=== PATIENT | female | born 1975 | race Hispanic/Latino ===

== ENCOUNTER 2016-02-26 16:33 | Emergency (ER) | payer MEDICARE ==
[~2016-02-26] VITALS: Ht 162.6 cm; Wt 86.2 kg
[~2016-02-26 16:33] MED LIST: HYDR100T27 PO; LABE100T2 PO
--- OUTSIDE RECORDS SUMMARY | 2016-02-26 16:37 | XMS REPORT | Continuity of Care Document ---
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 Role Phone NO, LOCAL PHYSICIAN PCP Unavailable Insurance Providers Payer Name Policy Number Subscriber Name Relationship [employer] [id number] Aliza Snow 16 Self / Same As Patient Advance Directives Directive Response Recorded Date/Time Advance Directives No 11/03/15 9:12am Resuscitation Status Full Code 11/03/15 9:12am Chief Complaint and Reason for Visit Chief Complaint Respiratory Problems Reason for Visit [id number] Volume overload Hyperkalemia, diminished renal excretion Problems Active Problems Medical Problem Onset Date Status End stage renal disease on dialysis Unknown Acute Hyperkalemia, diminished renal excretion Unknown Acute Volume overload Unknown Acute Medications Current Home Medications Medication Dose Units Route Directions Days/Qty Instructions Start Date Hydralazine Hcl 100 Mg 100 Mg Oral Daily 11/03/15 Labetalol Hcl 100 Mg 100 Mg Oral Daily 11/03/15 Social History Social History Problem Response Recorded Date/Time Alcohol Use Denies Use 11/03/2015 9:18am Recreational Drug Use No 11/03/2015 9:18am Recent Foreign Travel No 11/03/2015 8:40am Recent Infectious Disease Exposure No 11/03/2015 8:40am Hospitalization with Isolation Denies 11/03/2015 8:40am Smoking Status Never a Smoker 11/03/2015 9:18am Recent Hopitalizations No 11/03/2015 9:12am Hospitalization with Isolation Denies 11/03/2015 8:40am Query Response Start Date Stop Date Smoking Status Never a Smoker Hospital Discharge Instructions No hospital discharge instructions. Plan of Care Discharge Date 11/03/15 12:40pm Disposition 02 XFER [facility]M HOSP Condition at Discharge Stable Prescriptions See Medication Section Referrals NO,LOCAL PHYSICIAN - Primary Care Physician Functional Status No functional status results. Allergies, Adverse Reactions, Alerts Allergen Type Severity Reaction Status Last Updated Vancomycin Allergy Unknown Active 11/03/15 Immunizations No immunization records. Vital Signs Acute Vital Signs Vital Response Date/Time Temperature (Fahrenheit) 97.5 degrees F (97.6 - 99.5) 11/03/2015 8:40am Temperature (Calculated Celsius) 36.55849 degrees C (36.4 - 37.5) 11/03/2015 8:40am Pulse Rate (adult) 90 bpm (60 - 90) 11/03/2015 8:40am Respiratory Rate 18 bpm (12 - 24) 11/03/2015 8:40am O2 Sat by Pulse Oximetry 96 % (88 - 100) 11/03/2015 8:40am Blood Pressure 206/124 mm Hg 11/03/2015 8:40am Blood Pressure Mean 151 mm Hg 11/03/2015 8:40am Pain Numeric Pain Scale 0-No Pain 11/03/2015 8:40am Height (Feet) 5 feet 11/03/2015 8:40am Height (Inches) 4 inches 11/03/2015 8:40am Height (Calculated Centimeters) 162.829192 cm 11/03/2015 8:40am Weight (Pounds) 192 pounds 11/03/2015 8:40am Weight (Calculated Kilograms) 87.320935 kilograms 11/03/2015 8:40am Capillary Refill Capillary Refill Less Than 3 Seconds 11/03/2015 8:40am Height 5 ft 4 in Weight 192 lb Body Mass Index 33.0 kg/m^2 Results Laboratory Results Test Name Result Units Flags Reference Collection Date/Time Result Date/ Time Comments White Blood Count 7.6 10^3/uL 4.3-11.0 11/03/2015 9:30am 11/03/2015 9: 40am Red Blood Count 2.54 10^6/uL L 4.35-5.85 11/03/2015 9:30am 11/03/2015 9: 40am Hemoglobin 7.4 G/DL L 11.5-16.0 11/03/2015 9:3011/03/2015 9:40am Hematocrit 22 % L 35-52 11/03/2015 9:11/03/2015 9:40am Mean Corpuscular Volume 87 FL 80-99 11/03/2015 9:11/03/2015 9: 40am Mean Corpuscular Hemoglobin 29 PG 25-34 11/03/2015 9:11/03/2015 9: 40am Mean Corpuscular Hemoglobin Concent 33 G/DL 32-36 11/03/2015 9: 9:40am Red Cell Distribution Width 19.3 % H 10.0-14.5 11/03/2015 9:2015 9:40am Platelet Count 145 10^3/uL 130-400 11/03/2015 9:11/03/2015 9:40am Mean Platelet Volume 9.2 FL 7.4-10.4 11/03/2015 9:11/03/2015 9: 40am Neutrophils (%) (Auto) 75 % 42-75 11/03/2015 9:11/03/2015 9:40am Lymphocytes (%) (Auto) 11 % L 12-44 11/03/2015 9:11/03/2015 9:40am Monocytes (%) (Auto) 8 % 0-12 11/03/2015 9:11/03/2015 9:40am Eosinophils (%) (Auto) 5 % 0-10 11/03/2015 9:11/03/2015 9:40am Basophils (%) (Auto) 1 % 0-10 11/03/2015 9:11/03/2015 9:40am Neutrophils # (Auto) 5.7 X 10^3 1.8-7.8 11/03/2015 9:11/03/2015 9: 40am Lymphocytes # (Auto) 0.8 X 10^3 L 1.0-4.0 11/03/2015 9:11/03/2015 9: 40am Monocytes # (Auto) 0.6 X 10^3 0.0-1.0 11/03/2015 9:3011/03/2015 9: 40am Eosinophils # (Auto) 0.4 10^3/uL H 0.0-0.3 11/03/2015 9:30am 11/03/2015 9 :40am Basophils # (Auto) 0.1 10^3/uL 0.0-0.1 11/03/2015 9:30am 11/03/2015 9: 40am Sodium Level 138 MMOL/L 135-145 11/03/2015 9:30am 11/03/2015 10:04am Potassium Level 6.0 MMOL/L H 3.6-5.0 11/03/2015 9:30am 11/03/2015 10: 04am Chloride Level 101 MMOL/L 98-107 11/03/2015 9:30am 11/03/2015 10:04am Carbon Dioxide Level 16 MMOL/L L 21-32 11/03/2015 9:30am 11/03/2015 10: 04am Anion Gap 21 MMOL/L H 5-14 11/03/2015 9:30am 11/03/2015 10:04am Blood Urea Nitrogen 115 MG/DL CH 7-18 11/03/2015 9:30am 11/03/2015 10: 04am RESULTS CALLED TO CHRISTINA AT 1004. RESULTS READ BACK: YES. Creatinine 14.23 MG/DL H 0.60-1.30 11/03/2015 9:30am 11/03/2015 10:04am BUN/Creatinine Ratio 8 11/03/2015 9:30am 11/03/2015 10:04am Estimat Glomerular Filtration Rate 3 11/03/2015 9:30am 11/03/2015 10:04am GFR INTERPRETIVE DATA UNITS FOR ESTIMATED GFR (eGFR): mL/min/1.73 M2 REFERENCE RANGE FOR ESTIMATED GFR (eGFR) eGFR NORMAL eGFR >60 MODERATELY DECREASED eGFR 30-59 SEVERLY DECREASED eGFR 15-29 KIDNEY FAILURE <15 (OR DIALYSIS) Glucose Level 87 MG/DL 70-105 11/03/2015 9:30am 11/03/2015 10:04am Calcium Level 8.8 MG/DL 8.5-10.1 11/03/2015 9:30am 11/03/2015 10:04am Magnesium Level 2.1 MG/DL 1.8-2.4 11/03/2015 9:30am 11/03/2015 10:04am Total Bilirubin 0.9 MG/DL 0.1-1.0 11/03/2015 9:30am 11/03/2015 10:04am Alkaline Phosphatase 154 U/L H 40-136 11/03/2015 9:30am 11/03/2015 10: 04am Aspartate Amino Transf (AST/SGOT) 21 U/L 5-34 11/03/2015 9:30am 2015 10:04am Alanine Aminotransferase (ALT/SGPT) 14 U/L 0-55 11/03/2015 9:30am 11/02 10:04am B-Type Natriuretic Peptide 1903.9 PG/ML H <100.0 11/03/2015 9:30am 2015 10:29am Total Protein 8.5 G/DL H 6.4-8.2 11/03/2015 9:30am 11/03/2015 10:04am Albumin 3.2 G/DL 3.2-4.5 11/03/2015 9:30am 11/03/2015 10:04am Procedures Procedure Status Date Provider(s) Tracing only of electrocardiogram Active 11/03/15 REMI CARCAMO MD Encounters Encounter Location Arrival/Admit Date Discharge/Depart Date Attending Provider Departed Emergency Room [facility] 11/03/15 8:38am 11/02 12:40pm REMI CARCAMO MD Recent Diagnosis
[2016-02-26 17:09] LABS: BASOPHILS # (AUTO) 0.1 10^3/uL (0.0-0.1); BASOPHILS % (AUTO) 2 % (0-10); EOSINOPHILS # (AUTO) 0.5 10^3/uL (0.0-0.3); EOSINOPHILS % (AUTO) 10 % (0-10); LYMPHOCYTES # (AUTO) 0.9 X 10^3 (1.0-4.0); LYMPHOCYTES % (AUTO) 16 % (12-44); MEAN CORPUSCULAR HEMOGLOBIN 28 PG (25-34); MEAN CORPUSCULAR HGB CONC 31 G/DL (32-36); MEAN CORPUSCULAR VOLUME 90 FL (80-99); MEAN PLATELET VOLUME 8.9 FL (7.4-10.4); MONOCYTES # (AUTO) 0.5 X 10^3 (0.0-1.0); MONOCYTES % (AUTO) 10 % (0-12); NEUTROPHILS # (AUTO) 3.3 X 10^3 (1.8-7.8); NEUTROPHILS % (AUTO) 62 % (42-75); PLATELET COUNT 130 10^3/uL (130-400); RED BLOOD COUNT 3.16 10^6/uL (4.35-5.85); RED CELL DISTRIBUTION WIDTH 18.1 % (10.0-14.5); WHITE BLOOD COUNT 5.3 10^3/uL (4.3-11.0)
--- NOTE | 2016-02-26 17:19 | ED Integumentary General ---
General Stated Complaint: CYST ON LEG Source: patient, EMS Exam Limitations: no limitations History of Present Illness Time seen by provider: 16:33 Initial Comments Here with report of right lower extremity edema and wound to the right lower leg outer aspect that is leaking foul-smelling drainage. Patient has chronic kidney disease and is on dialysis. She has bilateral lower extremity edema. She has wound to the left lower extremity as well to posterior aspect but she states that when is doing okay. She has had therapy for the right lower extremity previously at [facility] and required IV antibiotics. Timing/Duration: week, getting worse Severity: moderate Location: extremities Possible Cause: no cause identified Associated Symptoms: change in skin texture edema swelling/mass/lumps Allergies and Home Medications Allergies Coded Allergies: vancomycin (Verified Allergy, Unknown, 11/03/15) Home Medications Hydralazine HCl 100 Mg Tablet 100 MG PO DAILY (Reported) Labetalol HCl 100 Mg Tablet 100 MG PO DAILY (Reported) Constitutional: see HPI chillsNo fever EENTM: no symptoms reported Respiratory: cough dyspnea on exertion Cardiovascular: no symptoms reported Gastrointestinal: No constipation, No diarrhea, other (abdominal distention) Genitourinary: no symptoms reported Musculoskeletal: No back pain, muscle pain Skin: no symptoms reported Psychiatric/Neurological: No Symptoms Reported All Other Systems Reviewed Negative Unless Noted: Yes Past Sjcscxa-[id number]-[id number] Hx Patient Social History Alcohol Use: Denies Use Recreational Drug Use: No Smoking Status: Never a Smoker Recent Hopitalizations: No Surgeries HX Surgeries: Yes Surgeries: Appendectomy, Arteriovenous Shunt, Gallbladder, Hysterectomy Respiratory Hx Respiratory Disorders: No Cardiovascular Hx Cardiac Disorders: Yes Cardiac Disorders: Hypertension Neurological Hx Neurological Disorders: No Reproductive System Hx Reproductive Disorders: No Genitourinary Hx Genitourinary Disorders: Yes Genitourinary Disorders: Kidney Stones, Renal Failure, Dialysis Gastrointestinal Hx Gastrointestinal Disorders: No Musculoskeletal Hx Musculoskeletal Disorders: No Endocrine Hx Endocrine Disorders: No Cancer Hx Cancer: No Psychosocial Hx Psychiatric Problems: No Integumentary HX Skin/Integumentary Disorder: No Blood Transfusions Hx Blood Disorders: No Reviewed Nursing Assessment Reviewed/Agree w Nursing PMH: Yes Family Medical History Significant Family History: Hypertension Physical Exam Vital Signs Capillary Refill : General Appearance: WD/WN no apparent distress HEENT: PERRL/EOMI pharynx normal Neck: full range of motion supple Cardiovascular: regular rate, rhythm no murmur Respiratory: lungs clear normal breath sounds Gastrointestinal: non tender soft Back: normal inspection no CVA tenderness no vertebral tenderness Extremities: non-tender normal inspection pedal edema (3+ bilateral) other ( bilateral flooded lower extremity edema. Wound to right lower extremity is approximately 8 x 12 cm and waking foul-smelling drainage. Tender to that wound. Wound to the left lower extremity much less inflamed. This is posterior.) Neurologic/Psychiatric: alert oriented x 3 Skin: warm/dry other (wound to the lower extremities as described above.) Skin Problem Location: lower extremities (right lower extremity) Skin Problem Character: drainage, erythema, lesion, thickening, warm Progress/Results/Core Measures Results/Orders Lab Results Laboratory Tests Test 02/26/16 16:59 Range/Units Alanine Aminotransferase (ALT/SGPT) 8 0-55 U/L Albumin 3.1 L 3.2-4.5 G/DL Alkaline Phosphatase 228 H 40-136 U/L Anion Gap 15 H 5-14 MMOL/L Aspartate Amino Transf (AST/SGOT) 18 5-34 U/L B-Type Natriuretic Peptide 1088.6 H <100.0 PG/ML BUN/Creatinine Ratio 7 Basophils # (Auto) 0.1 0.0-0.1 10^3/uL Basophils (%) (Auto) 2 0-10 % Blood Urea Nitrogen 61 H 7-18 MG/DL C-Reactive Protein High Sensitivity 4.33 H 0.00-0.50 MG/DL Calcium Level 8.5 8.5-10.1 MG/DL Carbon Dioxide Level 25 21-32 MMOL/L Chloride Level 97 L 98-107 MMOL/L Creatinine 9.01 H 0.60-1.30 MG/DL Eosinophils # (Auto) 0.5 H 0.0-0.3 10^3/uL Eosinophils (%) (Auto) 10 0-10 % Estimat Glomerular Filtration Rate 5 Glucose Level 90 70-105 MG/DL Hematocrit 28 L 35-52 % Hemoglobin 8.9 L 11.5-16.0 G/DL Lactic Acid Level 1.5 0.5-2.0 MMOL/L Lymphocytes # (Auto) 0.9 L 1.0-4.0 X 10^3 Lymphocytes (%) (Auto) 16 12-44 % Mean Corpuscular Hemoglobin 28 25-34 PG Mean Corpuscular Hemoglobin Concent 31 L 32-36 G/DL Mean Corpuscular Volume 90 80-99 FL Mean Platelet Volume 8.9 7.4-10.4 FL Monocytes # (Auto) 0.5 0.0-1.0 X 10^3 Monocytes (%) (Auto) 10 0-12 % Neutrophils # (Auto) 3.3 1.8-7.8 X 10^3 Neutrophils (%) (Auto) 62 42-75 % Platelet Count 130 130-400 10^3/uL Potassium Level 4.6 3.6-5.0 MMOL/L Red Blood Count 3.16 L 4.35-5.85 10^6/uL Red Cell Distribution Width 18.1 H 10.0-14.5 % Sodium Level 137 135-145 MMOL/L Total Bilirubin 0.9 0.1-1.0 MG/DL Total Protein 8.0 6.4-8.2 G/DL White Blood Count 5.3 4.3-11.0 10^3/uL My Orders Orders-REMI CARCAMO MD BNP (02/26/16 16:43) Cbc With Automated Diff (02/26/16 16:43) Comprehensive Metabolic Panel (02/26/16 16:43) Hs C Reactive Protein (02/26/16 16:43) Blood Culture (02/26/16 16:43) Wound Culture (02/26/16 16:43) Chest 1 View, Ap/Pa Only (02/26/16 16:43) Tibia/Fibula, Right, 2 Views (02/26/16 16:43) Lactic Acid Analyzer (02/26/16 16:43) Fentanyl Injection (Sublimaze Injection (02/26/16 18:22) Progress Note : Progress Note Seen and evaluated. IV, labs and blood cultures ordered. Wound culture ordered. Lactic acid ordered. Monitor patient. Chest x-ray and right tib-fib x-ray ordered. Monitor patient. Patient complaining of pain to the right lower extremity. Concerns for cigarette and cellulitis. Patient is on dialysis and will require IV antibiotics and dialysis. This exceeds level care by hospital. I did call [facility] in [facility]. I did discuss the case with Dr. Salgado, hospitalist on-call who accepts patient for admission. Requesting cefepime 2 g IV initiated which will be started here. Transfer via [facility]. Patient agrees to transfer. Diagnostic Imaging Diagonstic Imaging: Xray Plain Films/CT/US/NM/MRI: chest Comments [facility] [place], [place] NAME: ALIZA SNOW [facility] REC#: [id number] PT STATUS: REG ER : 1975 PHYSICIAN: REMI CARCAMO MD ADMIT DATE: 02/26/16/ER Draft Date of Exam:02/26/16 CHEST 1 VIEW, AP/PA ONLY EXAM: CHEST 1 VIEW, AP/PA ONLY INDICATION: Shortness of breath. COMPARISON: Chest radiograph 11/03/2015. FINDINGS: Persistent cardiomegaly and increased pulmonary venous congestion. There has been only mild improvement in the consolidation in the right lung base. Persistent right pleural effusion. No definite left pleural effusion. IMPRESSION: 1. Persistent right pleural effusion and consolidation in the right lung base. 2. Stable cardiomegaly and increased pulmonary venous congestion. Dictated on workstation # [id number] Dict: 02/26/161828 Trans: 02/26/16 [address] [id number] Interpreted by: ARVIN BENITEZ MD Electronically signed by: Reviewed: Reviewed by [place] Diagonstic Imaging: Xray Plain Films/CT/US/NM/MRI: leg Comments [facility] [place] [place] NAME: ALIZA SNOW [facility] REC#: [id number] PT STATUS: REG ER : 1975 PHYSICIAN: REMI CARCAMO MD ADMIT DATE: 02/26/16/ER Draft Date of Exam:02/26/16 TIBIA/FIBULA, RIGHT, 2 VIEWS EXAM: TIBIA/FIBULA, RIGHT, 2 VIEWS INDICATION: Skin ulcerations right leg. COMPARISON: None. FINDINGS: No fracture or malalignment. No osseous lucencies or sclerosis to indicate osteomyelitis. IMPRESSION: No acute radiographic findings in the right tibia or fibula. No radiographic findings suggestive of osteomyelitis. Dictated on workstation # [id number] Dict: 02/26/161829 Trans: 02/26/16 183 LIBAN [id number] Interpreted by: ARVIN BENITEZ MD Electronically signed by: Reviewed: Reviewed by Me Departure Impression Impression: Primary Impression: Cellulitis Qualified Code: L03.115 - Cellulitis of right lower limb Additional Impression: End stage renal disease on dialysis Disposition: 02 XFER SHT-TRM HOSP Condition: Stable Transfer Transfer Time: 18:46 Transfer Facility: [place], [place], Dr. Salgado accepting Method of Transfer: EMS Departure-Patient Inst. Referrals: NO,LOCAL PHYSICIAN (PCP/Family) Primary Care Physician REMI CARCAMO MD Feb 26, 2016 17:19
[2016-02-26 17:28] LABS: ALBUMIN 3.1 G/DL (3.2-4.5); BILIRUBIN,TOTAL 0.9 MG/DL (0.1-1.0); CALCIUM 8.5 MG/DL (8.5-10.1); CREATININE SERUM 9.01 MG/DL (0.60-1.30); POTASSIUM 4.6 MMOL/L (3.6-5.0); hs C REACTIVE PROTEIN 4.33 MG/DL (0.00-0.50)
[2016-02-26] MEDS ORDERED: fentaNYL INJECTION 100 MCG/2 ML AMP IVP STA (18:22)
--- NOTE | 2016-02-26 18:32 | Diagnostic Imaging Report ---
EXAM: CHEST 1 VIEW, AP/PA ONLY INDICATION: Shortness of breath. COMPARISON: Chest radiograph 11/03/2015. FINDINGS: Persistent cardiomegaly and increased pulmonary venous congestion. There has been only mild improvement in the consolidation in the right lung base. Persistent right pleural effusion. No definite left pleural effusion. IMPRESSION: 1. Persistent right pleural effusion and consolidation in the right lung base. 2. Stable cardiomegaly and increased pulmonary venous congestion. Dictated by: Dictated on workstation # [id number]
--- NOTE | 2016-02-26 18:34 | Diagnostic Imaging Report ---
EXAM: TIBIA/FIBULA, RIGHT, 2 VIEWS INDICATION: Skin ulcerations right leg. COMPARISON: None. FINDINGS: No fracture or malalignment. No osseous lucencies or sclerosis to indicate osteomyelitis. IMPRESSION: No acute radiographic findings in the right tibia or fibula. No radiographic findings suggestive of osteomyelitis. Dictated by: Dictated on workstation # [id number]
[2016-02-26] MEDS ORDERED: CEFEPIME INJECTION 2,000 MG in NORMAL SALINE (BAXTER MINI) 50 ML IV ONE (19:00)
[2016-02-26] MEDS ORDERED: fentaNYL INJECTION 100 MCG/2 ML AMP IVP ONE (19:18)
[2016-02-26 20:30] VITALS: BP 135/86
== END 2016-02-26 20:30 | disposition short-term general hospital (02) ==
LOC: EDUNIT# 16:33 → ER 16:34
DX: L03.115 Cellulitis of right lower limb (principal); R60.0 Localized edema; I51.7 Cardiomegaly; I12.0 Hypertensive chronic kidney disease with stage 5 chronic kidney disease or end stage renal disease; N18.6 End stage renal disease; Z99.2 Dependence on renal dialysis; Z79.899 Other long term (current) drug therapy
CPT/HCPCS: 36415; 71010; 73590; 80053; 83605; 83880; 85025; 86141; 87040; 87070; 87077; 87186; 87205; 96374; 96375; 96376

== ENCOUNTER 2016-03-20 21:31 | Emergency (ER) | payer MEDICARE ==
[~2016-03-20] VITALS: Ht 162.6 cm; Wt 86.2 kg
--- OUTSIDE RECORDS SUMMARY | 2016-03-20 21:37 | XMS REPORT | Continuity of Care Document ---
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 Phone NO, LOCAL PHYSICIAN PCP Unavailable Insurance Providers Payer Name Policy Number Subscriber Name Relationship [employer] [id number] Aliza Snow 16 Self / Same As Patient Advance Directives Directive Response Recorded Date/Time Advance Directives No 02/26/16 6:45pm Health Care Power of Tool Mechanic No 02/26/16 6:45pm Organ Donor Yes 02/26/16 6:45pm Resuscitation Status Full Code 02/26/16 6:45pm Chief Complaint and Reason for Visit Chief Complaint Skin/Wound Problems Reason for Visit Cellulitis [id number] Problems Active Problems Medical Problem Onset Date Status Cellulitis Unknown Acute End stage renal disease on dialysis Unknown Acute Hyperkalemia, diminished renal excretion Unknown Acute Volume overload Unknown Acute Medications Current Home Medications Medication Dose Units Route Directions Days/Qty Instructions Start Date Hydralazine Hcl 100 Mg 100 Mg Oral Daily 11/03/15 Labetalol Hcl 100 Mg 100 Mg Oral Daily 11/03/15 Social History Social History Problem Response Recorded Date/Time Alcohol Use Denies Use 02/26/2016 6:45pm Recreational Drug Use No 02/26/2016 6:45pm Recent Foreign Travel No 02/26/2016 4:45pm Recent Infectious Disease Exposure No 02/26/2016 4:45pm Smoking Status Never a Smoker 02/26/2016 6:45pm Recent Hopitalizations No 02/26/2016 6:45pm Query Response Start Date Stop Date Smoking Status Never a Smoker Hospital Discharge Instructions No hospital discharge instructions. Plan of Care Discharge Date 02/26/16 8:30pm Disposition 02 XFER SHT-TRM HOSP Condition at Discharge Stable Prescriptions See Medication Section Referrals NO,LOCAL PHYSICIAN - Primary Care Physician Functional Status No functional status results. Allergies, Adverse Reactions, Alerts Allergen Type Severity Reaction Status Last Updated Vancomycin Allergy Unknown Active 11/03/15 Immunizations No immunization records. Vital Signs Acute Vital Signs Vital Response Date/Time Temperature (Fahrenheit) 100.2 degrees F (97.6 - 99.5) 02/26/2016 4:45pm Temperature (Calculated Celsius) 37.59071 degrees C (36.4 - 37.5) 02/26/2016 4:45pm Temperature Source Temporal 02/26/2016 4:45pm Pulse Rate (adult) 100 bpm (60 - 90) 02/26/2016 4:45pm Respiratory Rate 22 bpm (12 - 24) 02/26/2016 4:45pm O2 Sat by Pulse Oximetry 96 % (88 - 100) 02/26/2016 4:45pm Blood Pressure 156/101 mm Hg 02/26/2016 4:45pm Blood Pressure Mean 119 mm Hg 02/26/2016 4:45pm Pain Numeric Pain Scale 8 02/26/2016 7:23pm Height (Feet) 5 feet 02/26/2016 4:45pm Height (Inches) 4 inches 02/26/2016 4:45pm Height (Calculated Centimeters) 162.170688 cm 02/26/2016 4:45pm Weight (Pounds) 190 pounds 02/26/2016 4:45pm Weight (Calculated Kilograms) 86.183072 kilograms 02/26/2016 4:45pm Capillary Refill Capillary Refill Less Than 3 Seconds 02/26/2016 4:45pm Height 5 ft 4 in Weight 190 lb Body Mass Index 32.6 kg/m^2 Results Laboratory Results Test Name Result Units Flags Reference Collection Date/Time Result Date/ Time Comments White Blood Count 5.3 10^3/uL 4.3-11.0 02/26/2016 4:59pm 02/26/2016 5: 11pm Red Blood Count 3.16 10^6/uL L 4.35-5.85 02/26/2016 4:59pm 02/26/2016 5: 11pm Hemoglobin 8.9 G/DL L 11.5-16.0 02/26/2016 4:59pm 02/26/2016 5:11pm Hematocrit 28 % L 35-52 02/26/2016 4:59pm 02/26/2016 5:11pm Mean Corpuscular Volume 90 FL 80-99 02/26/2016 4:59pm 02/26/2016 5: 11pm Mean Corpuscular Hemoglobin 28 PG 25-34 02/26/2016 4:59pm 02/26/2016 5: 11pm Mean Corpuscular Hemoglobin Concent 31 G/DL L 32-36 02/26/2016 4:59pm 5:11pm Red Cell Distribution Width 18.1 % H 10.0-14.5 02/26/2016 4:59pm 2016 5:11pm Platelet Count 130 10^3/uL 130-400 02/26/2016 4:59pm 02/26/2016 5:11pm Mean Platelet Volume 8.9 FL 7.4-10.4 02/26/2016 4:59pm 02/26/2016 5: 11pm Neutrophils (%) (Auto) 62 % 42-75 02/26/2016 4:59pm 02/26/2016 5:11pm Lymphocytes (%) (Auto) 16 % 12-44 02/26/2016 4:59pm 02/26/2016 5:11pm Monocytes (%) (Auto) 10 % 0-12 02/26/2016 4:59pm 02/26/2016 5:11pm Eosinophils (%) (Auto) 10 % 0-10 02/26/2016 4:59pm 02/26/2016 5:11pm Basophils (%) (Auto) 2 % 0-10 02/26/2016 4:59pm 02/26/2016 5:11pm Neutrophils # (Auto) 3.3 X 10^3 1.8-7.8 02/26/2016 4:59pm 02/26/2016 5: 11pm Lymphocytes # (Auto) 0.9 X 10^3 L 1.0-4.0 02/26/2016 4:59pm 02/26/2016 5: 11pm Monocytes # (Auto) 0.5 X 10^3 0.0-1.0 02/26/2016 4:59pm 02/26/2016 5: 11pm Eosinophils # (Auto) 0.5 10^3/uL H 0.0-0.3 02/26/2016 4:59pm 02/26/2016 5 :11pm Basophils # (Auto) 0.1 10^3/uL 0.0-0.1 02/26/2016 4:59pm 02/26/2016 5: 11pm Sodium Level 137 MMOL/L 135-145 02/26/2016 4:59pm 02/26/2016 5:29pm Potassium Level 4.6 MMOL/L 3.6-5.0 02/26/2016 4:59pm 02/26/2016 5:29pm Chloride Level 97 MMOL/L L 98-107 02/26/2016 4:59pm 02/26/2016 5:29pm Carbon Dioxide Level 25 MMOL/L 21-32 02/26/2016 4:59pm 02/26/2016 5: 29pm Anion Gap 15 MMOL/L H 5-14 02/26/2016 4:59pm 02/26/2016 5:29pm Blood Urea Nitrogen 61 MG/DL H 7-18 02/26/2016 4:59pm 02/26/2016 5:29pm Creatinine 9.01 MG/DL H 0.60-1.30 02/26/2016 4:59pm 02/26/2016 5:29pm BUN/Creatinine Ratio 7 02/26/2016 4:59pm 02/26/2016 5:29pm Estimat Glomerular Filtration Rate 5 02/26/2016 4:59pm 02/26/2016 5 :29pm GFR INTERPRETIVE DATA UNITS FOR ESTIMATED GFR (eGFR): mL/min/1.73 M2 REFERENCE RANGE FOR ESTIMATED GFR (eGFR) eGFR NORMAL eGFR >60 MODERATELY DECREASED eGFR 30-59 SEVERLY DECREASED eGFR 15-29 KIDNEY FAILURE <15 (OR DIALYSIS) Glucose Level 90 MG/DL 70-105 02/26/2016 4:59pm 02/26/2016 5:29pm Calcium Level 8.5 MG/DL 8.5-10.1 02/26/2016 4:59pm 02/26/2016 5:29pm Total Bilirubin 0.9 MG/DL 0.1-1.0 02/26/2016 4:59pm 02/26/2016 5:29pm Alkaline Phosphatase 228 U/L H 40-136 02/26/2016 4:59pm 02/26/2016 5: 29pm Aspartate Amino Transf (AST/SGOT) 18 U/L 5-34 02/26/2016 4:59pm 2016 5:29pm Alanine Aminotransferase (ALT/SGPT) 8 U/L 0-55 02/26/2016 4:59pm 2016 5:29pm B-Type Natriuretic Peptide 1088.6 PG/ML H <100.0 02/26/2016 4:59pm 2016 5:48pm Total Protein 8.0 G/DL 6.4-8.2 02/26/2016 4:59pm 02/26/2016 5:29pm Albumin 3.1 G/DL L 3.2-4.5 02/26/2016 4:59pm 02/26/2016 5:29pm Lactic Acid Level 1.5 MMOL/L 0.5-2.0 02/26/2016 4:59pm 02/26/2016 5: 24pm Lactic acid levels can appear lower than actual values in patients receiving NAC (N-Acetyl Cysteine). C-Reactive Protein High Sensitivity 4.33 MG/DL H 0.00-0.50 02/26/2016 4: 59pm 02/26/2016 5:29pm Procedures No known history of procedures. Encounters Encounter Location Arrival/Admit Date Discharge/Depart Date Attending Provider Departed Emergency Room [facility] 02/26/16 4:34pm 02/25 8:30pm REMI CARCAMO MD Recent Diagnosis
--- NOTE | 2016-03-20 22:43 | ED GI ---
General Chief Complaint: Rect Problems Stated Complaint: BLOOD AND CLOTS IN THE BATHROOM, DIALYSIS PT Nursing Triage Note: to ER with complaints of blood in stool tonight. Patient reports that she had a bowel movement and when she wiped, it was bloody with clots. Patient reports that she is a dialysis patient and does dialysis . . Sat. Sepsis Screen: No Definite Risk Source of Information: Patient Exam Limitations: No Limitations History of Present Illness Time Seen By Provider: 22:30 Initial Comments Here with report of bowel movement with some clots on the toilet paper. Patient has end-stage renal disease and is on dialysis. Usually dialyzes on Monday, and Monday. She did not miss any dialysis. Is not complaining of any abdominal pain. No nausea or vomiting. She states that she had similar issue when she lived in [place] one time and they did colonoscopy which did not show any abnormalities. She has not had persistent bleeding tonight. Timing/Duration: 1 Hour Severity/Quality: Mild Location: Other (per rectum) Radiation: No Radiation Associated Symptoms: No Back Pain, No Chest Pain, No Fever/Chills, No Nausea/ Vomiting, No Shortness of Air, No Weakness Allergies and Home Medications Allergies Coded Allergies: vancomycin (Verified Allergy, Unknown, 11/03/15) Home Medications Labetalol HCl 100 Mg Tablet 100 MG PO DAILY (Reported) Review of Systems Constitutional: see HPINo chills, No fever EENTM: No Symptoms Reported Respiratory: No Symptoms Reported Cardiovascular: No Symptoms Reported Gastrointestinal: See HPIDenies Constipated, Denies Diarrhea, Denies Nausea, Rectal BleedingDenies Vomiting Genitourinary: No Symptoms Reported Past Dpmnjfc-Gegyhd-Mldejc Hx Patient Social History Alcohol Use: Denies Use Recreational Drug Use: No Smoking Status: Never a Smoker 2nd Hand Smoke Exposure: No Recent Foreign Travel: No Contact w/Someone Who Travel: No Recent Infectious Disease Expo: No Recent Hopitalizations: No Immunizations Up To Date Tetanus Booster (TDap): More than 5yrs Date of Pneumonia Vaccine: Feb 06, 2013 Date of Influenza Vaccine: Oct 08, 2015 Seasonal Allergies Seasonal Allergies: No Surgeries HX Surgeries: Yes Surgeries: Appendectomy, Arteriovenous Shunt, Gallbladder, Hysterectomy Respiratory Hx Respiratory Disorders: No Cardiovascular Hx Cardiac Disorders: Yes Cardiac Disorders: Hypertension Neurological Hx Neurological Disorders: No Reproductive System Hx Reproductive Disorders: No Genitourinary Hx Genitourinary Disorders: Yes Genitourinary Disorders: Kidney Stones, Renal Failure, Dialysis Gastrointestinal Hx Gastrointestinal Disorders: No Musculoskeletal Hx Musculoskeletal Disorders: No Endocrine Hx Endocrine Disorders: No Cancer Hx Cancer: No Psychosocial Hx Psychiatric Problems: No Integumentary HX Skin/Integumentary Disorder: No Blood Transfusions Hx Blood Disorders: No Reviewed Nursing Assessment Reviewed/Agree w Nursing PMH: Yes Family Medical History Significant Family History: Hypertension Family Medial History: Diabetes mellitus 19 MOTHER FH: liver disease G8 BROTHER FH: prostate cancer 19 FATHER Physical Exam Vital Signs VS - Last 72 Hours, by Label 03/20/16 21:45 Temp 98.1 Pulse 101 Resp 18 B/P 159/100 Pulse Ox 94 O2 Delivery Room Air Capillary Refill : Less Than 3 Seconds General Appearance: WD/WN no apparent distress Neck: full range of motion supple Respiratory: lungs clear normal breath sounds Cardiovascular: regular rate, rhythm no murmur Gastrointestinal: non tender soft Rectal: No black stool, No blood streaked stool, No decreased tone, heme positive stool (trace) hemorrhoids (several small hemorrhoids with one that appears to be recently ruptured at the posterior aspect. No active bleeding. No gross blood on digital rectal exam.) Neurologic/Psychiatric: alert oriented x 3 Skin: normal color warm/dry Progress/Results/Core Measures Results/Orders Lab Results Laboratory Tests Test 03/20/16 22:40 Range/Units Alanine Aminotransferase (ALT/SGPT) < 6 0-55 U/L Albumin 3.5 3.2-4.5 G/DL Alkaline Phosphatase 191 H 40-136 U/L Anion Gap 17 H 5-14 MMOL/L Aspartate Amino Transf (AST/SGOT) 23 5-34 U/L BUN/Creatinine Ratio 9 Basophils # (Auto) 0.2 H 0.0-0.1 10^3/uL Basophils (%) (Auto) 4 0-10 % Blood Urea Nitrogen 60 H 7-18 MG/DL Calcium Level 9.4 8.5-10.1 MG/DL Carbon Dioxide Level 24 21-32 MMOL/L Chloride Level 97 L 98-107 MMOL/L Creatinine 6.74 H 0.60-1.30 MG/DL Eosinophils # (Auto) 0.5 H 0.0-0.3 10^3/uL Eosinophils (%) (Auto) 8 0-10 % Estimat Glomerular Filtration Rate 7 Glucose Level 83 70-105 MG/DL Hematocrit 27 L 35-52 % Hemoglobin 8.2 L 11.5-16.0 G/DL Lymphocytes # (Auto) 0.8 L 1.0-4.0 X 10^3 Lymphocytes (%) (Auto) 15 12-44 % Mean Corpuscular Hemoglobin 30 25-34 PG Mean Corpuscular Hemoglobin Concent 30 L 32-36 G/DL Mean Corpuscular Volume 97 80-99 FL Mean Platelet Volume 8.9 7.4-10.4 FL Monocytes # (Auto) 0.5 0.0-1.0 X 10^3 Monocytes (%) (Auto) 8 0-12 % Neutrophils # (Auto) 3.8 1.8-7.8 X 10^3 Neutrophils (%) (Auto) 66 42-75 % Platelet Count 139 130-400 10^3/uL Potassium Level 4.7 3.6-5.0 MMOL/L Red Blood Count 2.78 L 4.35-5.85 10^6/uL Red Cell Distribution Width 20.0 H 10.0-14.5 % Sodium Level 138 135-145 MMOL/L Total Bilirubin 1.1 H 0.1-1.0 MG/DL Total Protein 8.5 H 6.4-8.2 G/DL White Blood Count 5.8 4.3-11.0 10^3/uL My Orders Orders-REMI CARCAMO MD Cbc With Automated Diff (03/20/16 22:29) Comprehensive Metabolic Panel (03/20/16 22:29) Saline Lock/Iv-Start (03/20/16 22:29) Vital Signs/I&O Vital Sign - Last 12Hours 03/20/16 21:45 Temp 98.1 Pulse 101 Resp 18 B/P 159/100 Pulse Ox 94 O2 Delivery Room Air Blood Pressure Mean: 119 Progress Note : Progress Note Seen and evaluated. Labs ordered. This was compared to previous and she has relatively stable hemoglobin. No active bleeding currently. I did discuss with her about the findings and concerns. She will need follow-up with her doctor and have referral for surgery consult for colonoscopy. Instructed to return for persistent bleeding or pain. Patient verbalize understanding. Discharged home with return precautions. Patient verbalize understanding instructions and agreement with plan. Departure Impression Impression: Primary Impression: Hemorrhoids Qualified Code: K64.9 - Unspecified hemorrhoids Additional Impression: Rectal bleeding Disposition: 01 HOME, SELF-CARE Condition: Stable Departure-Patient Inst. Decision time for Depature: 23:28 Referrals: RADHA RICHARDS DO NO,LOCAL PHYSICIAN (PCP) Primary Care Physician Patient Instructions: Gastrointestinal Bleeding, Hemorrhoids (DC) Add. Discharge Instructions: All discharge instructions reviewed with patient and/or family. Voiced understanding. It is very important that you call your doctor tomorrow for further evaluation including referral to a surgeon for colonoscopy. Return for pain, fever, vomiting, continued bleeding from the rectum or other concerns as needed. REMI CARCAMO MD Mar 20, 2016 22:43
[2016-03-20 22:49] LABS: BASOPHILS # (AUTO) 0.2 10^3/uL (0.0-0.1); BASOPHILS % (AUTO) 4 % (0-10); EOSINOPHILS # (AUTO) 0.5 10^3/uL (0.0-0.3); EOSINOPHILS % (AUTO) 8 % (0-10); LYMPHOCYTES # (AUTO) 0.8 X 10^3 (1.0-4.0); LYMPHOCYTES % (AUTO) 15 % (12-44); MEAN CORPUSCULAR HEMOGLOBIN 30 PG (25-34); MEAN CORPUSCULAR HGB CONC 30 G/DL (32-36); MEAN CORPUSCULAR VOLUME 97 FL (80-99); MEAN PLATELET VOLUME 8.9 FL (7.4-10.4); MONOCYTES # (AUTO) 0.5 X 10^3 (0.0-1.0); MONOCYTES % (AUTO) 8 % (0-12); NEUTROPHILS # (AUTO) 3.8 X 10^3 (1.8-7.8); NEUTROPHILS % (AUTO) 66 % (42-75); PLATELET COUNT 139 10^3/uL (130-400); RED BLOOD COUNT 2.78 10^6/uL (4.35-5.85); WHITE BLOOD COUNT 5.8 10^3/uL (4.3-11.0)
[2016-03-20 23:08] LABS: ALANINE AMINOTRANSFERASE < 6 U/L (0-55); ALBUMIN 3.5 G/DL (3.2-4.5); ANION GAP 17 MMOL/L (5-14); ASPARTATE AMINO TRANSFERASE 23 U/L (5-34); BILIRUBIN,TOTAL 1.1 MG/DL (0.1-1.0); BLOOD UREA NITROGEN 60 MG/DL (7-18); BUN/CREATININE RATIO 9; CALCIUM 9.4 MG/DL (8.5-10.1); CARBON DIOXIDE 24 MMOL/L (21-32); CHLORIDE 97 MMOL/L (98-107); CREATININE SERUM 6.74 MG/DL (0.60-1.30); GFR ESTIMATED 7; GLUCOSE 83 MG/DL (70-105); POTASSIUM 4.7 MMOL/L (3.6-5.0); SODIUM 138 MMOL/L (135-145); TOTAL PROTEIN 8.5 G/DL (6.4-8.2)
[2016-03-21 00:04] VITALS: BP 142/91
== END 2016-03-21 00:04 | disposition home or self-care (01) ==
LOC: EDUNIT# 21:31 → ER 21:33
DX: K64.9 Unspecified hemorrhoids (principal); K62.5 Hemorrhage of anus and rectum; I12.0 Hypertensive chronic kidney disease with stage 5 chronic kidney disease or end stage renal disease; N18.6 End stage renal disease; Z99.2 Dependence on renal dialysis; Z79.899 Other long term (current) drug therapy
CPT/HCPCS: 36415; 80053; 85025; 99285

== ENCOUNTER 2016-06-23 16:50 | Emergency (ER) | payer MEDICARE ==
[~2016-06-23] VITALS: Ht 160 cm; Wt 102.1 kg
[2016-06-23 17:18] LABS: BASOPHILS # (AUTO) 0.1 10^3/uL (0.0-0.1); BASOPHILS % (AUTO) 2 % (0-10); EOSINOPHILS # (AUTO) 0.3 10^3/uL (0.0-0.3); EOSINOPHILS % (AUTO) 7 % (0-10); LYMPHOCYTES # (AUTO) 1.1 X 10^3 (1.0-4.0); LYMPHOCYTES % (AUTO) 27 % (12-44); MEAN CORPUSCULAR HEMOGLOBIN 30 PG (25-34); MEAN CORPUSCULAR HGB CONC 31 G/DL (32-36); MEAN CORPUSCULAR VOLUME 96 FL (80-99); MEAN PLATELET VOLUME 9.3 FL (7.4-10.4); MONOCYTES # (AUTO) 0.4 X 10^3 (0.0-1.0); MONOCYTES % (AUTO) 9 % (0-12); NEUTROPHILS # (AUTO) 2.3 X 10^3 (1.8-7.8); NEUTROPHILS % (AUTO) 56 % (42-75); PLATELET COUNT 101 10^3/uL (130-400); RED BLOOD COUNT 2.97 10^6/uL (4.35-5.85); RED CELL DISTRIBUTION WIDTH 18.9 % (10.0-14.5); WHITE BLOOD COUNT 4.1 10^3/uL (4.3-11.0)
--- NOTE | 2016-06-23 17:25 | ED Chest Pain ---
General Chief Complaint: Chest Pain Stated Complaint: CHEST PAIN Nursing Triage Note: to ER 2 by [facility] with reports of intermittent chest pain for the past 3-4 days. Patient reports that it is substernal, going to the right chest and arm. EMS administered 324mg ASA and 1 SL nitroglycerin [employer]. EMS initiated 20g IV to the left hand. Nursing Sepsis Screen: No Definite Risk History of Present Illness Time seen by provider: 17:15 Initial Comments Right chest wall and breast tenderness. She reports having dialysis earlier today. She sees a branding specialist in [place] for open wounds to bilateral lower legs, they are covered with dressings today. No active drainage noted. Timing/Duration: intermittent Severity/Quality: mild (05/16) Radiation: no radiation Prior CP/Workup: no prior chest pain ASA po [employer]: Yes NTG SL [employer]: Yes Associated Symptoms: denies symptoms Allergies and Home Medications Allergies Coded Allergies: vancomycin (Verified Allergy, Unknown, 11/03/15) Home Medications Labetalol HCl 100 Mg Tablet, 100 MG PO DAILY, (Reported) Tramadol HCl 50 Mg Tablet, 50 MG PO Q8H PRN for PAIN-MILD TO MODERATE, #12 Ref 0 Prescribed by: JULIANA PANG on 06/23/161914 Review of Systems Constitutional: no symptoms reported, see HPI EENTM: No Symptoms Reported, See HPI Respiratory: See HPI, Other (right chest wall pain) Cardiovascular: See HPI, Chest Pain Gastrointestinal: No Symptoms Reported, See HPI Genitourinary: No Symptoms Reported, See HPI Musculoskeletal: no symptoms reported, see HPI Skin: no symptoms reported, see HPI Psychiatric/Neurological: No Symptoms Reported, See HPI Endocrine: No Symptoms Reported, See HPI Hematologic/Lymphatic: No Symptoms Reported, See HPI All Other Systems Reviewed Negative Unless Noted: Yes Past Dewepyi-Ioanzv-Qjmhjp Hx Patient Social History Alcohol Use: Denies Use Recreational Drug Use: No Smoking Status: Never a Smoker 2nd Hand Smoke Exposure: No Recent Foreign Travel: No Contact w/Someone Who Travel: No Recent Infectious Disease Expo: No Recent Hopitalizations: No Immunizations Up To Date Tetanus Booster (TDap): More than 5yrs Date of Pneumonia Vaccine: Feb 06, 2013 Date of Influenza Vaccine: Oct 08, 2015 Seasonal Allergies Seasonal Allergies: No Surgeries HX Surgeries: Yes Surgeries: Appendectomy, Arteriovenous Shunt, Gallbladder, Hysterectomy Respiratory Hx Respiratory Disorders: No Cardiovascular Hx Cardiac Disorders: Yes Cardiac Disorders: Hypertension Neurological Hx Neurological Disorders: No Reproductive System Hx Reproductive Disorders: No Genitourinary Hx Genitourinary Disorders: Yes Genitourinary Disorders: Kidney Stones, Renal Failure, Dialysis Gastrointestinal Hx Gastrointestinal Disorders: No Musculoskeletal Hx Musculoskeletal Disorders: No Endocrine Hx Endocrine Disorders: No Cancer Hx Cancer: No Psychosocial Hx Psychiatric Problems: No Integumentary HX Skin/Integumentary Disorder: No Blood Transfusions Hx Blood Disorders: No Reviewed Nursing Assessment Reviewed/Agree w Nursing PMH: Yes Family Medical History Significant Family History: Hypertension Family Medial History: Diabetes mellitus 19 MOTHER FH: liver disease G8 BROTHER FH: prostate cancer 19 FATHER Physical Exam Vital Signs Vital Sign - Last 12Hours 06/23/16 17:02 Temp 98.9 Pulse 92 Resp 16 B/P (MAP) 145/92 Pulse Ox 99 O2 Delivery Room Air Capillary Refill : Less Than 3 Seconds General Appearance: No Apparent Distress, WD/WN HEENT: PERRL/EOMI, TMs Normal, Normal ENT Inspection, Pharynx Normal Neck: Full Range of Motion, Normal Inspection, Non Tender, Supple, No Lymphadenopathy (L), No Lymphadenopathy (R) Respiratory: Lungs Clear, Other (tenderness right upper chest wall, fibrocystic thickening upper right breast 11:00 to 1:00, no lumps or skin changes noted. No nipple inversion or skin dimpling) Cardiovascular: Regular Rate, Rhythm, No Murmur, Normal Peripheral Pulses Gastrointestinal: Normal Bowel Sounds, No Organomegaly, No Pulsatile Mass, Non Tender, Soft, Distended Extremity: Normal Capillary Refill, Normal Range of Motion, No Calf Tenderness Neurologic/Psychiatric: Alert, Oriented x3, No Motor/Sensory Deficits, Normal Mood/Affect Skin: Normal Color, Warm/Dry Lymphatic: No Adenopathy Progress/Results/Core Measures Results/Orders Lab Results Laboratory Tests Test 06/23/16 17:00 Range/Units White Blood Count 4.1 L 4.3-11.0 10^3/uL Red Blood Count 2.97 L 4.35-5.85 10^6/uL Hemoglobin 8.9 L 11.5-16.0 G/DL Hematocrit 29 L 35-52 % Mean Corpuscular Volume 96 80-99 FL Mean Corpuscular Hemoglobin 30 25-34 PG Mean Corpuscular Hemoglobin Concent 31 L 32-36 G/DL Red Cell Distribution Width 18.9 H 10.0-14.5 % Platelet Count 101 L 130-400 10^3/uL Mean Platelet Volume 9.3 7.4-10.4 FL Neutrophils (%) (Auto) 56 42-75 % Lymphocytes (%) (Auto) 27 12-44 % Monocytes (%) (Auto) 9 0-12 % Eosinophils (%) (Auto) 7 0-10 % Basophils (%) (Auto) 2 0-10 % Neutrophils # (Auto) 2.3 1.8-7.8 X 10^3 Lymphocytes # (Auto) 1.1 1.0-4.0 X 10^3 Monocytes # (Auto) 0.4 0.0-1.0 X 10^3 Eosinophils # (Auto) 0.3 0.0-0.3 10^3/uL Basophils # (Auto) 0.1 0.0-0.1 10^3/uL Sodium Level 137 135-145 MMOL/L Potassium Level 3.2 L 3.6-5.0 MMOL/L Chloride Level 95 L 98-107 MMOL/L Carbon Dioxide Level 33 H 21-32 MMOL/L Anion Gap 9 5-14 MMOL/L Blood Urea Nitrogen 16 7-18 MG/DL Creatinine 3.33 H 0.60-1.30 MG/DL Estimat Glomerular Filtration Rate 15 BUN/Creatinine Ratio 5 Glucose Level 82 70-105 MG/DL Calcium Level 8.3 L 8.5-10.1 MG/DL Total Bilirubin 0.7 0.1-1.0 MG/DL Aspartate Amino Transf (AST/SGOT) 21 5-34 U/L Alanine Aminotransferase (ALT/SGPT) 9 0-55 U/L Alkaline Phosphatase 186 H 40-136 U/L Troponin I < 0.30 <0.30 NG/ML Total Protein 8.4 H 6.4-8.2 G/DL Albumin 3.1 L 3.2-4.5 G/DL My Orders Orders - JULIANA PANG Saline Lock/Iv-Start (06/23/16 17:42) Ns Iv 1000 Ml (Sodium Chloride 0.9%) (06/23/16 17:42) Potassium Chloride (Tablet) (Klor Con Ta (06/23/16 18:08) Tramadol Tablet (Ultram Tablet) (06/23/16 18:40) Medications Given in ED Current Medications Medications Dose Ordered Sig/[place] Route Start Time Stop Time Status Last Admin Dose Admin Sodium Chloride 1,000 ml @ 0 mls/hr Q0M ONCE IV 06/23/16 17:42 06/23/16 17:43 DC 06/23/16 18:00 0 MLS/HR Vital Signs/I&O Vital Sign - Last 12Hours 06/23/16 06/23/16 06/23/16 17:02 17:02 18:47 Temp 98.9 98.9 Pulse 92 Resp 16 B/P (MAP) 145/92 Pulse Ox 99 O2 Delivery Room Air Room Air Blood Pressure Mean: 109 Progress Note : Time: 17:15 Progress Note Initial evaluation completed, EKG reviewed with Dr. Ceja. No acute changes noted, will await laboratory and x-ray studies. 1730 WBC 4.1, hemoglobin 8.9, hematocrit 29. Sodium 137, potassium 3.2, creatinine 3.33, glucose 82, estimated GFR 15, alk phosphatase 186, troponin 1 less than 0.3, total protein 8.4. Patient unable to provide urine, for UA. States she has "no urine output" and hasn't for some time since being on dialysis. 1800 500 mg bolus of normal saline infused per IV. Potassium 20 mEq by mouth. Ultram 50 mg by mouth for pain. 1840 patient reports to be feeling better less chest wall pain. Discussed returning to home. She will follow up with her renal specialist and copies of labs were given to her. Encouraged that she have a mammogram, and outpatient orders for this were provided. Encouraged that she schedule herself with a primary care provider to become established. ECG Initial ECG Impression Date: June 23, 2016 Initial ECG Impression Time: 16:54 Initial ECG Rate: 89 Initial ECG Rhythm: Normal Sinus Initial ECG Intervals: Normal Initial ECG Intervals TX 156, QRSD 88; QT 424; QTc 516 [place]: P 5; QRS 54; T 52 Initial ECG Impression: Normal Initial ECG Comparisson: Unchanged Comment Reviewed with Dr. Ceja agrees with interpretation. Diagnostic Imaging Diagonstic Imaging: Xray Plain Films/CT/US/NM/MRI: chest Comments NAME: ALIZA SNOW MED REC#: [id number] PT STATUS: REG ER : 1975 PHYSICIAN: ELIANA CEJA MD ADMIT DATE: 06/23/16/ER Draft Date of Exam:06/23/16 CHEST 1 VIEW, AP/PA ONLY INDICATION: Chest pain. EXAMINATION: Frontal chest was obtained at 5:21 p.m. COMPARISON: 02/26/16. FINDINGS: There is cardiomegaly. There is infiltrate in the right lung base which appears similar to the prior study and may be either persistent or recurrent. There is a small amount of pleural fluid on the right side. There is no change in apparent nodular density in the left midlung. There is no pneumothorax. IMPRESSION: Cardiomegaly. Infiltrate in the right lung base is present which appears similar to the prior study. As above, there is some right pleural fluid. Nodular density overlying the left midlung is again noted. Suggest followup with PA and lateral views of the chest when clinically warranted. Dictated on workstation # [id number] Dict: 06/23/16 1732 Trans: 06/23/16 1738 [facility] [id number] Interpreted by: ANAYELI MCKEON MD Electronically signed by: Reviewed: Reviewed by Me Departure Impression Impression: Primary Impression: Chest wall pain Additional Impression: Fibrocystic breast Qualified Codes: N60.11 - Diffuse cystic mastopathy of right breast Disposition: HOME, SELF-CARE Condition: Improved Departure-Patient Inst. Decision time for Depature: 17:55 Referrals: NO,LOCAL PHYSICIAN (PCP/Family) Primary Care Physician Patient Instructions: Chest Pain That Is Not Caused by the Heart (DC), Fibrocystic Breast Changes (DC) Add. Discharge Instructions: Establish care with a primary care provider see list of local medical staff. Call via [facility] scheduling for outpatient mammogram. Return to emergency department if symptoms worsen, difficulty breathing, chest pain, fevers or new problems. All discharge instructions reviewed with patient and/or family. Voiced understanding. Scripts Tramadol HCl (Ultram) 50 Mg Tablet 50 MG PO Q8H Y for PAIN-MILD TO MODERATE, #12 TAB 0 Refills Prov: JULIANA PANG 06/23/16 Work/School Note: Local Medical Staff Listing JULIANA PANG June 23, 2016 17:25
[2016-06-23 17:30] LABS: ALANINE AMINOTRANSFERASE 9 U/L (0-55); ALBUMIN 3.1 G/DL (3.2-4.5); ANION GAP 9 MMOL/L (5-14); ASPARTATE AMINO TRANSFERASE 21 U/L (5-34); BILIRUBIN,TOTAL 0.7 MG/DL (0.1-1.0); BLOOD UREA NITROGEN 16 MG/DL (7-18); BUN/CREATININE RATIO 5; CALCIUM 8.3 MG/DL (8.5-10.1); CARBON DIOXIDE 33 MMOL/L (21-32); CHLORIDE 95 MMOL/L (98-107); CREATININE SERUM 3.33 MG/DL (0.60-1.30); GFR ESTIMATED 15; GLUCOSE 82 MG/DL (70-105); POTASSIUM 3.2 MMOL/L (3.6-5.0); SODIUM 137 MMOL/L (135-145); TOTAL PROTEIN 8.4 G/DL (6.4-8.2)
[2016-06-23 17:36] LABS: TROPONIN I < 0.30 NG/ML (<0.30)
--- NOTE | 2016-06-23 17:39 | Diagnostic Imaging Report ---
INDICATION: Chest pain. EXAMINATION: Frontal chest was obtained at 5:21 p.m. COMPARISON: 02/26/16. FINDINGS: There is cardiomegaly. There is infiltrate in the right lung base which appears similar to the prior study and may be either persistent or recurrent. There is a small amount of pleural fluid on the right side. There is no change in apparent nodular density in the left midlung. There is no pneumothorax. IMPRESSION: Cardiomegaly. Infiltrate in the right lung base is present which appears similar to the prior study. As above, there is some right pleural fluid. Nodular density overlying the left midlung is again noted. Suggest followup with PA and lateral views of the chest when clinically warranted. Dictated by: Dictated on workstation # [id number]
[2016-06-23] MEDS ORDERED: NS IV 1000 ML 1,000 ML IV ONE (17:42)
[2016-06-23] MEDS ORDERED: KCL 10 MEQ TAB (MICRO K) PO STA (18:08)
[2016-06-23] MEDS ORDERED: TRAM-42 PO (19:15)
[2016-06-23 19:29] VITALS: BP 161/98
== END 2016-06-23 19:29 | disposition home or self-care (01) ==
LOC: EDUNIT# 16:50 → ER 16:51
DX: R07.89 Other chest pain (principal); I12.0 Hypertensive chronic kidney disease with stage 5 chronic kidney disease or end stage renal disease; N18.6 End stage renal disease; I51.7 Cardiomegaly; N60.11 Diffuse cystic mastopathy of right breast; S81.801A Unspecified open wound, right lower leg, initial encounter; S81.802A Unspecified open wound, left lower leg, initial encounter; Z99.2 Dependence on renal dialysis; X58.XXXA Exposure to other specified factors, initial encounter; Y99.8 Other external cause status
CPT/HCPCS: 36415; 71010; 80053; 84484; 85025; 93005; 96360

== ENCOUNTER → 2016-07-12 | Outpatient (CLI) | payer MEDICARE, MEDICAID ==
[~2016-07-12] MED LIST changes: +TRAM-42 PO
--- NOTE | 2016-07-12 11:59 | Diagnostic Imaging Report ---
EXAMINATION: Bilateral diagnostic mammogram with a Computer Aided Detection (CAD) system. INDICATION: Right breast pain. COMPARISON: This is a baseline study. FINDINGS: The breasts are composed of heterogeneously dense parenchyma which may decrease mammographic sensitivity. There are extensive benign-appearing mostly vascular calcifications seen. There is no definite mass, architectural distortion, or suspicious cluster of calcifications. IMPRESSION: Heterogeneously dense breast parenchyma with no suspicious focal lesion. An ultrasound evaluation is pending. ACR BI-RADS Category 0: Incomplete. (Needs additional imaging evaluation). Result letter will be mailed to the patient. Note: At least 10% of breast cancer is not imaged by mammography. Dictated by: Dictated on workstation # [id number]
--- NOTE | 2016-07-12 12:09 | Diagnostic Imaging Report ---
EXAMINATION: Right breast ultrasound. INDICATION: Right breast pain. FINDINGS: The area of pain around the central aspect of the right breast is scanned as well as the rest of the breast covering the four-quadrants and retroareolar region with no underlying abnormality seen. IMPRESSION: Negative study. Clinical followup of the pain complaints would be recommended. ACR BI-RADS Category 1: Negative. Dictated by: Dictated on workstation # [id number]
== END ==
LOC: RAD 08:22
PROVIDERS: ATTEND Nurse Practitioner
DX: N64.9 Disorder of breast, unspecified (principal)
CPT/HCPCS: 76641; 77066

== ENCOUNTER 2016-08-11 19:44 | Emergency (ER) | payer MEDICARE, MEDICAID ==
[~2016-08-11] VITALS: Ht 160 cm; Wt 102.1 kg
--- NOTE | 2016-08-11 19:51 | ED EENT ---
History of Present Illness General Chief Complaint: Nasal Problems Nursing Triage Note: to ER 7 by [facility] with reprots of nose bleed since 1200. Denies trauma. Source: patient Exam Limitations: no limitations History of Present Illness Time seen by provider: 19:47 Initial Comments Patient presents by EMS for epistaxis that has started 11:30 and has not stopped since. She has been stuffing toilet paper up her nose to no avail. She is 7 years on hemodialysis Monday is not sure who her physician office nurse is. She denies chest pain shortness of breath fever chills or rash. She has no nausea or vomiting. She has a clamp placed by EMS and does not feel that she has any blood running down the back of her throat. She is not benign different medicines lately she only takes labetalol for blood pressure but is not sure what her blood pressure usually runs. She denies any trauma or allergies. Patient denies any liver disease, hepatitis, HIV. Allergies and Home Medications Allergies Coded Allergies: vancomycin (Verified Allergy, Unknown, 11/03/15) Home Medications Labetalol HCl 100 Mg Tablet, 100 MG PO DAILY, (Reported) Tramadol HCl 50 Mg Tablet, 50 MG PO Q8H PRN for PAIN-MILD TO MODERATE, #12 Ref 0 Prescribed by: JULIANA PANG on 06/23/161914 Review of Systems Constitutional: No chills, No diaphoresis, No malaise Eyes: See HPI Nose: see HPI, denies congestion, epistaxis, denies pain, bloody discharge, denies previous injury Mouth: denies clots, denies loose teeth, denies pain Throat: denies pain, denies swelling, denies neck stiffness, denies hoarse Respiratory: No cough, No short of breath Cardiovascular: No chest pain, No Hx of Intervention Gastrointestinal: No abdominal pain, No diarrhea, No nausea Past Odwkoeo-Enjrsv-Xuwfou Hx Patient Social History Alcohol Use: Denies Use Recreational Drug Use: No Smoking Status: Never a Smoker 2nd Hand Smoke Exposure: No Recent Foreign Travel: No Contact w/Someone Who Travel: No Recent Infectious Disease Expo: No Recent Hopitalizations: No Immunizations Up To Date Tetanus Booster (TDap): More than 5yrs Date of Pneumonia Vaccine: Feb 06, 2013 Date of Influenza Vaccine: Oct 08, 2015 Seasonal Allergies Seasonal Allergies: No Surgeries HX Surgeries: Yes Surgeries: Appendectomy, Arteriovenous Shunt, Gallbladder, Hysterectomy Respiratory Hx Respiratory Disorders: No Cardiovascular Hx Cardiac Disorders: Yes Cardiac Disorders: Hypertension Neurological Hx Neurological Disorders: No Reproductive System Hx Reproductive Disorders: No Genitourinary Hx Genitourinary Disorders: Yes Genitourinary Disorders: Kidney Stones, Renal Failure, Dialysis Gastrointestinal Hx Gastrointestinal Disorders: No Musculoskeletal Hx Musculoskeletal Disorders: No Endocrine Hx Endocrine Disorders: No Cancer Hx Cancer: No Psychosocial Hx Psychiatric Problems: No Integumentary HX Skin/Integumentary Disorder: No Blood Transfusions Hx Blood Disorders: No Family Medical History Significant Family History: Hypertension Family Medial History: Diabetes mellitus 19 MOTHER FH: liver disease G8 BROTHER FH: prostate cancer 19 FATHER Physical Exam Vital Signs Vital Sign - Last 12Hours 08/11/16 19:45 Temp 98.2 Pulse 89 Resp 16 B/P (MAP) 175/110 Pulse Ox 95 O2 Delivery Room Air General Appearance: no apparent distress, obese Eyes: bilateral eye EOMI, bilateral eye PERRL, bilateral eye normal inspection Nose: normal inspection, dried blood, No sinus tenderness, other (nose clamp in place) Mouth/Throat: pharynx normal, other (old blood back parents trace amount) Neck: non-tender, supple, normal inspection Cardiovascular: normal peripheral pulses, regular rate, rhythm, other (chronic edema bilateral lower extremities) Respiratory: chest non-tender, lungs clear Gastrointestinal: normal bowel sounds, non tender, soft Neurologic/Psychiatric: alert, oriented x 3 Skin: normal color, warm/dry Progress/Results/Core Measures Results/Orders Lab Results Laboratory Tests Test 08/11/16 19:53 Range/Units White Blood Count 5.9 4.3-11.0 10^3/uL Red Blood Count 3.40 L 4.35-5.85 10^6/uL Hemoglobin 10.6 L 11.5-16.0 G/DL Hematocrit 31 L 35-52 % Mean Corpuscular Volume 92 80-99 FL Mean Corpuscular Hemoglobin 31 25-34 PG Mean Corpuscular Hemoglobin Concent 34 32-36 G/DL Red Cell Distribution Width 17.1 H 10.0-14.5 % Platelet Count 89 L 130-400 10^3/uL Mean Platelet Volume 9.6 7.4-10.4 FL Neutrophils (%) (Auto) 71 42-75 % Lymphocytes (%) (Auto) 19 12-44 % Monocytes (%) (Auto) 5 0-12 % Eosinophils (%) (Auto) 4 0-10 % Basophils (%) (Auto) 1 0-10 % Neutrophils # (Auto) 4.2 1.8-7.8 X 10^3 Lymphocytes # (Auto) 1.1 1.0-4.0 X 10^3 Monocytes # (Auto) 0.3 0.0-1.0 X 10^3 Eosinophils # (Auto) 0.2 0.0-0.3 10^3/uL Basophils # (Auto) 0.1 0.0-0.1 10^3/uL Prothrombin Time 19.3 H 12.2-14.7 SEC INR Comment 1.7 H 0.8-1.4 Activated Partial Thromboplast Time 41 H 24-35 SEC Sodium Level 139 135-145 MMOL/L Potassium Level 5.5 H 3.6-5.0 MMOL/L Chloride Level 97 L 98-107 MMOL/L Carbon Dioxide Level 18 L 21-32 MMOL/L Anion Gap 24 H 5-14 MMOL/L Blood Urea Nitrogen 128 *H 7-18 MG/DL Creatinine 14.28 H 0.60-1.30 MG/DL Estimat Glomerular Filtration Rate 3 BUN/Creatinine Ratio 9 Glucose Level 88 70-105 MG/DL Calcium Level 7.8 L 8.5-10.1 MG/DL Total Bilirubin 0.9 0.1-1.0 MG/DL Aspartate Amino Transf (AST/SGOT) 21 5-34 U/L Alanine Aminotransferase (ALT/SGPT) 22 0-55 U/L Alkaline Phosphatase 156 H 40-136 U/L Total Protein 8.9 H 6.4-8.2 GM/DL Albumin 3.5 3.2-4.5 GM/DL My Orders Orders - SAMMYLINDA Cbc With Automated Diff (08/11/16 19:51) Comprehensive Metabolic Panel (08/11/16 19:51) Protime With Inr (08/11/16 19:51) Partial Thromboplastin Time (08/11/16 19:51) Oxymetazoline 0.05% Nasal [place] (Afrin 0. (08/11/16 21:00) Vital Signs/I&O Vital Sign - Last 12Hours 08/11/16 19:45 Temp 98.2 Pulse 89 Resp 16 B/P (MAP) 175/110 Pulse Ox 95 O2 Delivery Room Air Blood Pressure Mean: 131 Progress Note #1: Time: 20:30 Progress Note Clamp seems to be stopping the blood and she is not having any drainage in the back of her nose and nothing to expectorate. We'll give her Afrin 3 puffs each nostril and hold the nasal clamp on for another 15 minutes. Progress Note #2: Time: 20:58 Progress Note After applying Afrin and 30 minutes of nasal clamping the bleeding has stopped we will allow her to go home with Afrin and the nasal clamps with strict return precautions. She will have dialysis tomorrow Departure Impression Impression: Primary Impression: Epistaxis Disposition: HOME, SELF-CARE Condition: Improved Departure-Patient Inst. Decision time for Depature: 21:28 Referrals: NO,LOCAL PHYSICIAN (PCP) Primary Care Physician Patient Instructions: Nosebleeds (DC) Add. Discharge Instructions: Do not blow your nose or stick anything in your nose. If you start to have bleeding again take 3 puffs of the Afrin in both nostrils and then apply the nasal clamp and leaning slightly forward while sitting up. If Any of the blood runs down the back your throat you should cough or spit up do not swallow it. Leave the clamp in place for 20 minutes. Set a timer. If you cannot get it under control or you start having new or worsening symptoms such as chest pain or shortness of breath return to the ER immediately. You should let your kidney doctor know tomorrow at your dialysis what happened today. All discharge instructions reviewed with patient and/or family. Voiced understanding. LINDA CHRISTIANSON Aug 11, 2016 19:51
[2016-08-11 19:59] LABS: BASOPHILS # (AUTO) 0.1 10^3/uL (0.0-0.1); BASOPHILS % (AUTO) 1 % (0-10); EOSINOPHILS # (AUTO) 0.2 10^3/uL (0.0-0.3); EOSINOPHILS % (AUTO) 4 % (0-10); LYMPHOCYTES # (AUTO) 1.1 X 10^3 (1.0-4.0); LYMPHOCYTES % (AUTO) 19 % (12-44); MEAN CORPUSCULAR HEMOGLOBIN 31 PG (25-34); MEAN CORPUSCULAR HGB CONC 34 G/DL (32-36); MEAN CORPUSCULAR VOLUME 92 FL (80-99); MEAN PLATELET VOLUME 9.6 FL (7.4-10.4); MONOCYTES # (AUTO) 0.3 X 10^3 (0.0-1.0); MONOCYTES % (AUTO) 5 % (0-12); NEUTROPHILS # (AUTO) 4.2 X 10^3 (1.8-7.8); NEUTROPHILS % (AUTO) 71 % (42-75); PLATELET COUNT 89 10^3/uL (130-400); RED CELL DISTRIBUTION WIDTH 17.1 % (10.0-14.5); WHITE BLOOD COUNT 5.9 10^3/uL (4.3-11.0)
[2016-08-11 20:09] LABS: INR 1.7 (0.8-1.4); PROTHROMBIN TIME PATIENT 19.3 SEC (12.2-14.7)
[2016-08-11 20:25] LABS: ALBUMIN 3.5 GM/DL (3.2-4.5); BILIRUBIN,TOTAL 0.9 MG/DL (0.1-1.0); CALCIUM 7.8 MG/DL (8.5-10.1); CREATININE SERUM 14.28 MG/DL (0.60-1.30); POTASSIUM 5.5 MMOL/L (3.6-5.0); TOTAL PROTEIN 8.9 GM/DL (6.4-8.2)
[2016-08-11] MEDS: OXYMETAZOLINE (AFRIN) 0.05% NA 15 ML BTL SCH (20:26)
[2016-08-11 21:33] VITALS: BP 165/90
== END 2016-08-11 21:33 | disposition home or self-care (01) ==
LOC: EDUNIT# 19:44 → ER 19:45
DX: R04.0 Epistaxis (principal); N19 Unspecified kidney failure; I10 Essential (primary) hypertension; Z90.710 Acquired absence of both cervix and uterus; Z87.442 Personal history of urinary calculi; Z90.49 Acquired absence of other specified parts of digestive tract; Z99.2 Dependence on renal dialysis
CPT/HCPCS: 36415; 80053; 85025; 85610; 85730

== ENCOUNTER 2016-08-15 22:07 | Emergency (ER) | payer MEDICARE, MEDICAID ==
[~2016-08-15] VITALS: Ht 160 cm; Wt 102.1 kg
[2016-08-15] MEDS ORDERED: fentaNYL INJECTION 100 MCG/2 ML AMP IVP ONE ×2 (22:15→23:15)
--- NOTE | 2016-08-15 22:16 | ED Abdominal Pain ---
General Stated Complaint: R KIDNEY PAIN Source of Information: Patient History of Present Illness Time Seen By Provider: 22:14 Initial Comments To ER with sudden onset right flank pain. She is a hemodialysis patient at [facility] without primary care provider. She receives dialysis Monday. She did receive Monday's hemodialysis. Today is Monday. Past medical history is significant for anuric renal failure Timing/Duration: 1-3 Hours Severity/Quality: Severe Radiation: Flank Activities at Onset: None Allergies and Home Medications Allergies Coded Allergies: vancomycin (Verified Allergy, Unknown, 11/03/15) Home Medications Labetalol HCl 100 Mg Tablet, 100 MG PO DAILY, (Reported) Tramadol HCl 50 Mg Tablet, 50 MG PO Q8H PRN for PAIN-MILD TO MODERATE, #12 Ref 0 Prescribed by: JULIANA PANG on 06/23/161914 Review of Systems Constitutional: see HPI EENTM: No Symptoms Reported Respiratory: No Symptoms Reported Cardiovascular: No Symptoms Reported Gastrointestinal: See HPI Genitourinary: See HPI, Flank Pain Musculoskeletal: no symptoms reported Skin: no symptoms reported Psychiatric/Neurological: No Symptoms Reported Endocrine: No Symptoms Reported Past Utrqnbl-Cuehgz-Sslvpn Hx Patient Social History 2nd Hand Smoke Exposure: No Recent Hopitalizations: No Immunizations Up To Date Tetanus Booster (TDap): More than 5yrs Date of Pneumonia Vaccine: Feb 06, 2013 Date of Influenza Vaccine: Oct 08, 2015 Seasonal Allergies Seasonal Allergies: No Surgeries HX Surgeries: Yes Surgeries: Appendectomy, Arteriovenous Shunt, Gallbladder, Hysterectomy Respiratory Hx Respiratory Disorders: No Cardiovascular Hx Cardiac Disorders: Yes Cardiac Disorders: Hypertension Neurological Hx Neurological Disorders: No Reproductive System Hx Reproductive Disorders: No Genitourinary Hx Genitourinary Disorders: Yes Genitourinary Disorders: Kidney Stones, Renal Failure, Dialysis Gastrointestinal Hx Gastrointestinal Disorders: No Musculoskeletal Hx Musculoskeletal Disorders: No Endocrine Hx Endocrine Disorders: No Cancer Hx Cancer: No Psychosocial Hx Psychiatric Problems: No Integumentary HX Skin/Integumentary Disorder: No Blood Transfusions Hx Blood Disorders: No Family Medical History Significant Family History: Hypertension Family Medial History: Diabetes mellitus 19 MOTHER FH: liver disease G8 BROTHER FH: prostate cancer 19 FATHER Physical Exam Vital Signs VS - Last 72 Hours, by Label 08/15/16 22:10 Temp 98.2 Pulse 93 Resp 20 B/P (MAP) 168/105 Pulse Ox 96 O2 Delivery Room Air Capillary Refill : General Appearance: WD/WN, no apparent distress Neck: non-tender, full range of motion Respiratory: normal breath sounds, no respiratory distress, no accessory muscle use Cardiovascular: regular rate, rhythm, no murmur Gastrointestinal: normal bowel sounds, non tender, soft Extremities: normal range of motion, non-tender Neurologic/Psychiatric: alert, normal mood/affect, oriented x 3 Skin: normal color, warm/dry Progress/Results/Core Measures Results/Orders Lab Results Laboratory Tests Test 08/15/16 22:15 08/15/16 23:19 Range/Units White Blood Count 6.5 4.3-11.0 10^3/uL Red Blood Count 3.15 L 4.35-5.85 10^6/uL Hemoglobin 9.6 L 11.5-16.0 G/DL Hematocrit 29 L 35-52 % Mean Corpuscular Volume 91 80-99 FL Mean Corpuscular Hemoglobin 31 25-34 PG Mean Corpuscular Hemoglobin Concent 34 32-36 G/DL Red Cell Distribution Width 16.4 H 10.0-14.5 % Platelet Count 144 130-400 10^3/uL Mean Platelet Volume 10.8 H 7.4-10.4 FL Neutrophils (%) (Auto) 72 42-75 % Lymphocytes (%) (Auto) 20 12-44 % Monocytes (%) (Auto) 5 0-12 % Eosinophils (%) (Auto) 3 0-10 % Basophils (%) (Auto) 1 0-10 % Neutrophils # (Auto) 4.7 1.8-7.8 X 10^3 Lymphocytes # (Auto) 1.3 1.0-4.0 X 10^3 Monocytes # (Auto) 0.3 0.0-1.0 X 10^3 Eosinophils # (Auto) 0.2 0.0-0.3 10^3/uL Basophils # (Auto) 0.1 0.0-0.1 10^3/uL Sodium Level 138 135-145 MMOL/L Potassium Level 5.1 H 3.6-5.0 MMOL/L Chloride Level 99 98-107 MMOL/L Carbon Dioxide Level 14 L 21-32 MMOL/L Anion Gap 25 H 5-14 MMOL/L Blood Urea Nitrogen 160 *H 7-18 MG/DL Creatinine 18.07 #H 0.60-1.30 MG/DL Estimat Glomerular Filtration Rate 2 BUN/Creatinine Ratio 9 Glucose Level 99 70-105 MG/DL Calcium Level 6.9 L 8.5-10.1 MG/DL My Orders Orders - SENDY DAWN APRN Cbc With Automated Diff (08/15/16 22:12) Basic Metabolic Panel (08/15/16 22:12) Ct Abd/Pelvis Wo(Kidney Stone) (08/15/16 22:12) Fentanyl Injection (Sublimaze Injection (08/15/16 22:15) Fentanyl Injection (Sublimaze Injection (08/15/16 23:15) Chest 1 View, Ap/Pa Only (08/15/16 23:21) Medications Given in ED Current Medications Medications Dose Ordered Sig/[place] Route Start Time Stop Time Status Last Admin Dose Admin Fentanyl Citrate 50 mcg ONCE ONCE IVP 08/15/16 22:15 08/15/16 22:16 DC 08/15/16 22:19 50 MCG Vital Signs/I&O Vital Sign - Last 12Hours 08/15/16 22:10 Temp 98.2 Pulse 93 Resp 20 B/P (MAP) 168/105 Pulse Ox 96 O2 Delivery Room Air Departure Communication Progress Notes 1134-patient has a persistent right pleural effusion which is likely the source of her pain. She is anuric so we cannot check a urine. She does not have dyspnea or hypoxia. She will be discharged home to get her dialysis tomorrow. She is resting much more comfortably at this point after 1 dose of fentanyl. 2353-CT report shows a small pericardial effusion. Moderate right pleural effusion and mild pulmonary edema. Surgical clips from cholecystectomy. Severe atrophy of the bilateral kidneys and vascular calcifications without hydronephrosis. Extensive fat stranding of the omental fat likely related to fluid overload status. Small to moderate amount of free fluid in the abdomen and pelvis. Fluid is seen within the lesser sac and within the leaves of the mesentery. No evidence for bowel obstruction. Hysterectomy. Complex- appearing left adnexal cystic mass with coarse calcification measuring 6.5 x 4.6 cm. Severe whole-body anasarca. 2355- reexam shows the patient to be sitting upright in her chair without respiratory distress. She denies any sensation of shortness of breath. She states that she feels "much better" after 1 dose of fentanyl. Impression Impression: Primary Impression: End stage renal disease on dialysis Additional Impressions: Right flank pain Pleural effusion, right Disposition: 01 HOME, SELF-CARE Condition: Stable Departure-Patient Inst. Decision time for Depature: 23:38 Referrals: NO,LOCAL PHYSICIAN (PCP/Family) Primary Care Physician Patient Instructions: Pleural Effusion SENDY DAWN APRN Aug 15, 2016 22:16
[2016-08-15 22:20] LABS: BASOPHILS # (AUTO) 0.1 10^3/uL (0.0-0.1); BASOPHILS % (AUTO) 1 % (0-10); EOSINOPHILS # (AUTO) 0.2 10^3/uL (0.0-0.3); EOSINOPHILS % (AUTO) 3 % (0-10); LYMPHOCYTES # (AUTO) 1.3 X 10^3 (1.0-4.0); LYMPHOCYTES % (AUTO) 20 % (12-44); MEAN CORPUSCULAR HEMOGLOBIN 31 PG (25-34); MEAN CORPUSCULAR HGB CONC 34 G/DL (32-36); MEAN CORPUSCULAR VOLUME 91 FL (80-99); MEAN PLATELET VOLUME 10.8 FL (7.4-10.4); MONOCYTES # (AUTO) 0.3 X 10^3 (0.0-1.0); MONOCYTES % (AUTO) 5 % (0-12); NEUTROPHILS # (AUTO) 4.7 X 10^3 (1.8-7.8); NEUTROPHILS % (AUTO) 72 % (42-75); PLATELET COUNT 144 10^3/uL (130-400); RED BLOOD COUNT 3.15 10^6/uL (4.35-5.85); RED CELL DISTRIBUTION WIDTH 16.4 % (10.0-14.5); WHITE BLOOD COUNT 6.5 10^3/uL (4.3-11.0)
[2016-08-16 00:01] LABS: CALCIUM 6.9 MG/DL (8.5-10.1); CREATININE SERUM 18.07 MG/DL (0.60-1.30)
[2016-08-16 00:02] LABS: POTASSIUM 5.1 MMOL/L (3.6-5.0)
[2016-08-16 00:11] VITALS: BP 168/105
--- NOTE | 2016-08-16 07:01 | Diagnostic Imaging Report ---
PROCEDURE: CT urinary tract, rule out kidney stone. TECHNIQUE: Multiple contiguous axial images were obtained through the abdomen and pelvis without the use of intravenous contrast. INDICATION: Right-sided flank pain, started one hour ago. History of stones, cholecystectomy, appendectomy, and hysterectomy. Comparison studies: None. FINDINGS: There is a moderate-size right pleural effusion and tiny pericardial effusion and moderate anasarca. Pulmonary congestion is present. There is a small/ moderate amount of ascites. It would be difficult to drain any of this due to it being deep. Fluid is present in the lesser sac and leaves of the mesentery. No loculated fluid collection is present. There is no free air. The gallbladder is absent. The liver, spleen, pancreas, and adrenal glands appear unremarkable. The kidneys are atrophied. No obstruction is present. The left ovary is prominent in size measuring 6.3 x 4.2 cm. Some cysts are present within this. There is also a calcification within this. There is some thickening of loops of bowel mainly on the right side and within the colon. No obstruction is present. There are no hernias. No varices are present in the lower pelvis. There are multiple small periaortic lymph nodes measuring up to 1 cm. Small mesenteric lymph nodes are also present. IMPRESSION: 1. Anasarca is present with ascites, right pleural effusion, pericardial effusion, pulmonary edema and congestion. 2. The kidneys are atrophied. 3. There is a mass in the left adnexa measuring 6.3 x 4.2 cm. This could be an enlarged ovary. Consider ultrasound for further evaluation. 4. There is some thickening of the bowel wall especially along the right colon. Dictated by: Dictated on workstation # [id number]
--- NOTE | 2016-08-16 07:30 | Diagnostic Imaging Report ---
INDICATION: Flank pain started one hour ago. Patient is on dialysis was last dialyzed on the eighth. COMPARISON STUDY: Chest from 06/23/2016. FINDINGS: Portable view of the chest again demonstrates cardiomegaly. There is a moderate size right pleural effusion. Atelectasis is seen in both the lungs right greater than left. The vascularity is normal. IMPRESSION: Cardiomegaly is present with right pleural effusion and atelectasis in both lower lungs. The vascularity is normal. Dictated by: Dictated on workstation # [id number]
== END 2016-08-16 00:11 | disposition home or self-care (01) ==
LOC: EDUNIT# 22:07 → ER 22:08
DX: I12.0 Hypertensive chronic kidney disease with stage 5 chronic kidney disease or end stage renal disease (principal); N18.6 End stage renal disease; J90 Pleural effusion, not elsewhere classified; Z99.2 Dependence on renal dialysis; Z90.710 Acquired absence of both cervix and uterus; Z90.49 Acquired absence of other specified parts of digestive tract; Z82.49 Family history of ischemic heart disease and other diseases of the circulatory system; Z87.442 Personal history of urinary calculi
CPT/HCPCS: 36415; 71010; 74176; 80048; 85025; 96374; 99283

== ENCOUNTER 2016-08-16 08:39 | Emergency (ER) | payer MEDICARE, MEDICAID ==
[~2016-08-16] VITALS: Ht 160 cm; Wt 102.1 kg
[2016-08-16 08:39] VITALS: BP 204/147
[2016-08-16] MEDS ORDERED: niCARdipine IV FOR DRIP 50 MG KIT ONE (08:49)
[2016-08-16] MEDS ORDERED: PROPOFOL DRIP (ICU) 100 ML IV ONE (08:50)
[2016-08-16] MEDS ORDERED: NS (IVPB) 250 ML ONE (08:50)
[2016-08-16] MEDS ORDERED: fentaNYL INJECTION 100 MCG/2 ML AMP IVP STA (08:54)
[2016-08-16] MEDS ORDERED: PROPOFOL INJECTION 50 ML IV SCH (09:00)
[2016-08-16] MEDS ORDERED: MIDAZOLAM 5 MG/5 ML (VERSED) VIAL IVP ONE ×2 (09:00)
[2016-08-16] MEDS ORDERED: niCARdipine IV 50 MG in NS (IVPB) 230 ML IV SCH (09:00)
[2016-08-16 09:06] LABS: BASOPHILS % (AUTO) 1 % (0-10); EOSINOPHILS # (AUTO) 0.1 10^3/uL (0.0-0.3); EOSINOPHILS % (AUTO) 2 % (0-10); LYMPHOCYTES # (AUTO) 1.4 X 10^3 (1.0-4.0); LYMPHOCYTES % (AUTO) 19 % (12-44); MEAN CORPUSCULAR HEMOGLOBIN 31 PG (25-34); MEAN CORPUSCULAR HGB CONC 34 G/DL (32-36); MEAN CORPUSCULAR VOLUME 91 FL (80-99); MEAN PLATELET VOLUME 9.7 FL (7.4-10.4); MONOCYTES # (AUTO) 0.3 X 10^3 (0.0-1.0); MONOCYTES % (AUTO) 4 % (0-12); NEUTROPHILS # (AUTO) 5.6 X 10^3 (1.8-7.8); NEUTROPHILS % (AUTO) 75 % (42-75); PLATELET COUNT 106 10^3/uL (130-400); RED BLOOD COUNT 3.47 10^6/uL (4.35-5.85); RED CELL DISTRIBUTION WIDTH 16.5 % (10.0-14.5); WHITE BLOOD COUNT 7.5 10^3/uL (4.3-11.0)
--- NOTE | 2016-08-16 09:11 | ED General ---
General Stated Complaint: UNRESPONSIVE Source of Information: Patient Exam Limitations: No Limitations History of Present Illness Time Seen by Provider: 08:40 Initial Comments Here by EMS emergently with report of unresponsiveness. Patient has long-term renal failure and is on dialysis. There is concerns that she has missed some dialysis but she was seen here yesterday and reported that she had dialysis on Monday. Her next dialysis is due today. She was at dialysis and had some therapy completed when she became unresponsive. EMS was summoned and noted to have blood pressure in the ranges of 220s over 170s. Patient had shallow breathing and was being assisted with bag valve mask. Patient is unresponsive on arrival. Respirations assisted with bag valve mask. Patient is tachycardic Timing/Duration: 1/2 Hour Severity: Severe Associated Systoms: No Fever/Chills, No Nausea/Vomiting, Shortness of Air Allergies and Home Medications Allergies Coded Allergies: vancomycin (Verified Allergy, Unknown, 11/03/15) Home Medications Labetalol HCl 100 Mg Tablet, 100 MG PO DAILY, (Reported) Tramadol HCl 50 Mg Tablet, 50 MG PO Q8H PRN for PAIN-MILD TO MODERATE, #12 Ref 0 Prescribed by: JULIANA PANG on 06/23/161914 Constitutional: see HPI, No fever Respiratory: see HPI Cardiovascular: see HPI Genitourinary: other (history of anuria) Other Unable to complete review of systems due to altered mental status Past Meuxfdk-Ptbfwc-Waatvu Hx Patient Social History Alcohol Use: Denies Use Recreational Drug Use: No Smoking Status: Never a Smoker 2nd Hand Smoke Exposure: No Recent Hopitalizations: No Immunizations Up To Date Tetanus Booster (TDap): More than 5yrs Date of Pneumonia Vaccine: Feb 06, 2013 Date of Influenza Vaccine: Oct 08, 2015 Seasonal Allergies Seasonal Allergies: No Surgeries HX Surgeries: Yes Surgeries: Appendectomy, Arteriovenous Shunt, Gallbladder, Hysterectomy Respiratory Hx Respiratory Disorders: No Cardiovascular Hx Cardiac Disorders: Yes Cardiac Disorders: Hypertension Neurological Hx Neurological Disorders: No Reproductive System Hx Reproductive Disorders: No Genitourinary Hx Genitourinary Disorders: Yes Genitourinary Disorders: Kidney Stones, Renal Failure, Dialysis Gastrointestinal Hx Gastrointestinal Disorders: No Musculoskeletal Hx Musculoskeletal Disorders: No Endocrine Hx Endocrine Disorders: No Cancer Hx Cancer: No Psychosocial Hx Psychiatric Problems: No Integumentary HX Skin/Integumentary Disorder: No Blood Transfusions Hx Blood Disorders: No Reviewed Nursing Assessment Reviewed/Agree w Nursing PMH: Yes Family Medical History Significant Family History: Hypertension Family Medial History: Diabetes mellitus 19 MOTHER FH: liver disease G8 BROTHER FH: prostate cancer 19 FATHER Physical Exam Vital Signs Vital Sign - Last 12Hours 08/16/16 09:15 Resp 16 FiO2 60 Capillary Refill : General Appearance: WD/WN, Moderate Distress (respiratory failure and unresponsiveness) HEENT: Other (right pupil pupil 3 mm and left pupil 5 mm after intubation. Small amount of blood in the oropharynx presumably related to oropharyngeal airway placement attempt.) Neck: Non Tender, Supple Respiratory: Crackles (right basilar), Other (rapid shallow breathing assisted with BVM.) Cardiovascular: No Murmur, Tachycardia Gastrointestinal: Non Tender, Soft Back: Normal Inspection, No Vertebral Tenderness Extremity: Pedal Edema (3+ pedal edema to the level of the upper thighs bilateral) Neurologic/Psychiatric: Other (unresponsive. No obvious facial droop.) Skin: Normal Color, Warm/Dry, Other (Unaboot to bilateral lower extremities) Focused Exam Lactic Acid Level Laboratory Tests Test 08/16/16 09:48 Lactic Acid Level 2.21 MMOL/L (0.50-2.00) *H Lumen: triple Central Line Procedure: betadine prep Position: internal jugular (R) Complications: none Post Position: sutured, good blood return, position confirmed w/ CXR Progress Place via ultrasound guidance with good placement and no complications. Date of ETT Placement: Aug 16, 2016 Time of ETT Placement: 08:47 Intubation Method: orotracheal Tube Size: 7.5 Medications: Fentanyl, Rocuronium, Versed Positive End Tide CO2: Yes Breath Sounds after Intubation: bilateral-equal Intubation Complications: no complications Post Intubation Xray: Yes Progress/Xray Impression: ET tube in good position Progress Intubated times one attempt via video scope. Tolerated procedure well. Progress/Results/Core Measures Results/Orders Lab Results Laboratory Tests Test 08/16/16 08:49 08/16/16 09:48 08/16/16 10:02 Range/Units White Blood Count 7.5 4.3-11.0 10^3/uL Red Blood Count 3.47 L 4.35-5.85 10^6/uL Hemoglobin 10.6 L 11.5-16.0 G/DL Hematocrit 31 L 35-52 % Mean Corpuscular Volume 91 80-99 FL Mean Corpuscular Hemoglobin 31 25-34 PG Mean Corpuscular Hemoglobin Concent 34 32-36 G/DL Red Cell Distribution Width 16.5 H 10.0-14.5 % Platelet Count 106 L 130-400 10^3/uL Mean Platelet Volume 9.7 7.4-10.4 FL Neutrophils (%) (Auto) 75 42-75 % Lymphocytes (%) (Auto) 19 12-44 % Monocytes (%) (Auto) 4 0-12 % Eosinophils (%) (Auto) 2 0-10 % Basophils (%) (Auto) 1 0-10 % Neutrophils # (Auto) 5.6 1.8-7.8 X 10^3 Lymphocytes # (Auto) 1.4 1.0-4.0 X 10^3 Monocytes # (Auto) 0.3 0.0-1.0 X 10^3 Eosinophils # (Auto) 0.1 0.0-0.3 10^3/uL Basophils # (Auto) 0.0 0.0-0.1 10^3/uL Prothrombin Time 17.7 H 12.2-14.7 SEC INR Comment 1.5 H 0.8-1.4 Activated Partial Thromboplast Time 38 H 24-35 SEC D-Dimer 2.41 H 0.00-0.49 UG/ML Sodium Level 137 135-145 MMOL/L Potassium Level 3.3 L 3.6-5.0 MMOL/L Chloride Level 95 L 98-107 MMOL/L Carbon Dioxide Level 18 L 21-32 MMOL/L Anion Gap 24 H 5-14 MMOL/L Blood Urea Nitrogen 89 H 7-18 MG/DL Creatinine 10.87 #H 0.60-1.30 MG/DL Estimat Glomerular Filtration Rate 4 BUN/Creatinine Ratio 8 Glucose Level 130 H 70-105 MG/DL Calcium Level 8.1 L 8.5-10.1 MG/DL Total Bilirubin 1.3 H 0.1-1.0 MG/DL Aspartate Amino Transf (AST/SGOT) 15 5-34 U/L Alanine Aminotransferase (ALT/SGPT) 18 0-55 U/L Alkaline Phosphatase 138 H 40-136 U/L Troponin I < 0.30 <0.30 NG/ML C-Reactive Protein High Sensitivity 2.17 H 0.00-0.50 MG/DL Total Protein 10.1 H 6.4-8.2 GM/DL Albumin 3.9 3.2-4.5 GM/DL Lactic Acid Level 2.21 *H 0.50-2.00 MMOL/L Blood Gas Puncture Site LEFT WRIST Blood Gas Patient Temperature 96.6 Arterial Blood pH 7.36 L 7.37-7.43 Arterial Blood Partial Pressure CO2 41 35-45 MMHG Arterial Blood Partial Pressure O2 78 L 79-93 MMHG Arterial Blood HCO3 23 23-27 MMOL/L Arterial Blood Total CO2 24.0 21.0-31.0 MMOL/L Arterial Blood Oxygen Saturation 94 94-100 % Arterial Blood Base Excess -1.9 -2.5-2.5 MMOL/L Christopher Test POSITIVE Blood Gas Ventilator Setting YES Blood Gas Inspired Oxygen 60% My Orders Orders - REMI ALAS MD Nicardipine Iv For Drip (Cardene I.V. (O (08/16/16 08:49) Ns (Ivpb) (Sodium Chloride 0.9%) (08/16/16 08:50) Propofol Drip (Icu) (Diprivan Drip (Icu) (08/16/16 08:50) Cbc With Automated Diff (08/16/16 08:54) Protime With Inr (08/16/16 08:54) Partial Thromboplastin Time (08/16/16 08:54) Comprehensive Metabolic Panel (08/16/16 08:54) Fibrin Degradation Products (08/16/16 08:54) Troponin I (08/16/16 08:54) Ua Culture If Indicated (08/16/16 08:54) Chest 1 View, Ap/Pa Only (08/16/16 08:54) Catheter(Urinary) Insert & Ass 03,15 (08/16/16 08:54) Ekg Tracing (08/16/16 08:54) Nothing By Mouth (08/16/16 Lunch) Accucheck Stat ONCE (08/16/16 08:54) Saline Lock/Iv-Start (08/16/16 08:54) Saline Lock/Iv-Start (08/16/16 08:54) Vital Signs-Stroke Q1H (08/16/16 08:54) Ct Head Wo-R/O Stroke (08/16/16 08:54) O2 (08/16/16 08:54) Intake & Output 06,14,22 (08/16/16 08:54) Monitor-Rhythm Ecg Trace Only (08/16/16 08:54) Dysphagia Screening Tool (08/16/16 08:54) Hs C Reactive Protein (08/16/16 08:54) Lactic Acid Analyzer (08/16/16 08:54) Blood Culture (08/16/16 08:54) Fentanyl Injection (Sublimaze Injection (08/16/16 08:54) Midazolam Injection (Versed Injection) (08/16/16 09:00) Midazolam Injection (Versed Injection) (08/16/16 09:00) Propofol Injection (Diprivan Injection) (08/16/16 09:00) Ns (Ivpb) (Sodium C... W/Nicardipine Iv (08/16/16 09:00) Chest 1 View, Ap/Pa Only (08/16/16 09:42) Arterial Blood Gas (08/16/16 09:53) Levofloxacin 750 Mg/150 Ml Iv (Levaquin (08/16/16 10:10) Rocuronium Injection (Zemuron Injection) (08/16/16 10:30) Medications Given in ED Current Medications Medications Dose Ordered Sig/[place] Route Start Time Stop Time Status Last Admin Dose Admin Midazolam HCl 5 mg ONCE ONCE IVP 08/16/16 09:00 08/16/16 09:01 DC 08/16/16 08:44 5 MG Midazolam HCl 5 mg ONCE ONCE IVP 08/16/16 09:00 08/16/16 09:01 DC 08/16/16 08:52 5 MG Rocuronium Aurora 50 mg ONCE ONCE IV 08/16/16 10:30 08/16/16 10:31 DC 08/16/16 08:46 50 MG Vital Signs/I&O Vital Sign - Last 12Hours 08/16/16 08/16/16 08/16/16 08:39 08:39 09:15 Pulse 133 114 Resp 16 B/P (MAP) 204/147 Pulse Ox 100 95 O2 Delivery Ambu-Bag Mechanical Ventilator O2 Flow Rate 15.00 FiO2 60 Progress Note : Progress Note Seen and evaluated on arrival by EMS. Stroke team activation due to concerns of patient with severe hypertension and acute unresponsiveness. IV access limited. IO placed to the right humerus. Patient in respiratory distress requiring [id number] assistance. Patient intubated emergently with 7.5 ET tube to 22 cm at the teeth. Sedated with 5 mg of Versed and 100 g of fentanyl IV. Rocuronium 50 mg IV given. Labs, EKG, chest x-ray and rapid CT head completed. Patient noted to have blood pressure 210/170. Due to concerns for bleeding, Cardene drip initiated. Propofol drip initiated for sedation. NG tube and Hill catheter placed. Patient will require central line. This was placed by me via ultrasound guidance. 0944: Initiated transfer with . Patient has subarachnoid hemorrhage and this is the closest location available for coiling procedure if indicated. Patient will require transfer via air. Due to bleeding, TPA is not indicated. 1006: I have updated the son on all of the concerns and current management and he is in agreement. He reports that the patient did not receive dialysis last Monday and it has been over a week. Patient has been in [place] but did not receive dialysis down in [place] per him. [facility] returned call and has accepted patient. Dr. Green accepting physician. Patient will go to neuro ICU. Findings on chest x-ray concerning for question of pneumonia. Lactic acid is elevated. Patient has end organ dysfunction but is not hypotensive and does not meet requirements for high- volume fluid resuscitation. Levaquin 750 mg IV initiated and transfer hospital updated on information. Blood cultures pending. To [facility] via [facility] transport. NG tube was advanced 10 cm after her last chest x-ray. Diagnostic Imaging Diagonstic Imaging: CT Plain Films/CT/US/NM/MRI: head Comments VIA [facility]. [place], [place] NAME: ALIZA FIGUEROA [facility] REC#: [id number] PT STATUS: REG ER : 1975 PHYSICIAN: REMI ALAS MD ADMIT DATE: 08/16/16/ER Signed Date of Exam:08/16/16 CT HEAD WO-R/O STROKE CT head without contrast. INDICATION: Patient is unresponsive. FINDINGS: There is subarachnoid hemorrhage seen with hyperdensity noted in the basilar cisterns and the sylvian fissures more on the right side. There is also hypodensity in the perimesencephalic cistern as well. There is obliteration of the CSF spaces especially near the base of the brain with hypodensity seen and decreased sullivan-white matter differentiation in the posterior fossa and inferior aspects of the frontal and temporal lobes suggestive of brain edema. The lateral ventricles are relatively small. Focal hypodensity near CSF density is seen near the right frontal horn. This is potentially related to an asymmetric lateral ventricle or a lesion in this location. This can be further evaluated with an enhanced exam or MRI. The calvarium, the paranasal sinuses, and orbits appear grossly unremarkable. IMPRESSION: 1. There is subarachnoid hemorrhage seen within the basilar cisterns and sylvian fissures more on the right side with associated brain edema and effacement of the CSF spaces. Followup CTA to evaluate for source of bleeding when the patient is stable is recommended. 2. Asymmetric hypodensity near the right frontal horn of the lateral ventricle could represent a normal variation of the ventricle or an underlying lesion. Further evaluation with contrast-enhanced studies would be helpful. The subarachnoid hemorrhage and brain edema findings were discussed with Dr. Alas at time of dictation. Dictated by: Dictated on workstation # [id number] Dict: 08/16/16912 Trans: 08/16/16 0935 [id number] Interpreted by: AASHISH ORANTES MD Electronically signed by: AASHISH ORANTES MD 08/16/16 0935 Diagonstic Imaging: Xray Plain Films/CT/US/NM/MRI: chest Comments VIA [facility] [place] [place] NAME: ALIZA FIGUEROA [facility] REC#: [id number] PT STATUS: REG ER : 1975 PHYSICIAN: REMI ALAS MD ADMIT DATE: 08/16/16/ER Signed Date of Exam:08/16/16 CHEST 1 VIEW, AP/PA ONLY Portable supine radiograph of the chest. INDICATION: Patient is unresponsive. COMPARISON: 08/15/2016. FINDINGS: There is extensive bilateral infiltrate more on the right side presumably related to pneumonia. The heart size is moderately enlarged with some background vascular congestion suggested. There is a small/ moderate right pleural effusion. The ET tube is 1.5 cm above the ruma. The NG tube appears to terminate in the distal esophagus. It needs to be advanced by about 12 cm. The pulmonary infiltrates are significantly worse compared to 08/15/2016. IMPRESSION: 1. Extensive bilateral infiltrates worsening from the prior exam. 2. ET tube is placed with its tip at 1.5 cm from the ruma. 3. The NG tube terminates in the distal esophagus. It needs to be advanced by about 12 cm. Dictated by: Dictated on workstation # [id number] Dict: 08/16/1609 Trans: 08/16/1639 [id number] Interpreted by: AASHISH ORANTES MD Electronically signed by: AASHISH ORANTES MD 08/16/1639 Critical Care Note Critical Care Start Time: 08:40 Stop Time: 10:45 Total Time (minutes) 60 Departure Impression Impression: Primary Impression: Subarachnoid hemorrhage Additional Impressions: Hypertensive emergency End-stage renal disease on hemodialysis Pneumonia involving right lung Qualified Codes: J18.9 - Pneumonia, unspecified organism Disposition: 02 XFER SHT-TRM HOSP Condition: Critical Transfer Transfer Time: 10:06 Transfer Facility: [place], [place], Dr. Green accepting Method of Transfer: Air Departure-Patient Inst. Referrals: NO,LOCAL PHYSICIAN (PCP/Family) Primary Care Physician REMI ALAS MD Aug 16, 2016 09:11
[2016-08-16 09:15] VITALS: BP 171/110
--- NOTE | 2016-08-16 09:15 | Diagnostic Imaging Report ---
Portable supine radiograph of the chest. INDICATION: Patient is unresponsive. COMPARISON: 08/15/2016. FINDINGS: There is extensive bilateral infiltrate more on the right side presumably related to pneumonia. The heart size is moderately enlarged with some background vascular congestion suggested. There is a small/ moderate right pleural effusion. The ET tube is 1.5 cm above the ruma. The NG tube appears to terminate in the distal esophagus. It needs to be advanced by about 12 cm. The pulmonary infiltrates are significantly worse compared to 08/15/2016. IMPRESSION: 1. Extensive bilateral infiltrates worsening from the prior exam. 2. ET tube is placed with its tip at 1.5 cm from the ruma. 3. The NG tube terminates in the distal esophagus. It needs to be advanced by about 12 cm. Dictated by: Dictated on workstation # [id number]
[2016-08-16 09:16] LABS: ANION GAP 24 MMOL/L (5-14); CARBON DIOXIDE 18 MMOL/L (21-32); CHLORIDE 95 MMOL/L (98-107); POTASSIUM 3.3 MMOL/L (3.6-5.0); SODIUM 137 MMOL/L (135-145)
[2016-08-16 09:17] LABS: ALANINE AMINOTRANSFERASE 18 U/L (0-55); ALBUMIN 3.9 GM/DL (3.2-4.5); ASPARTATE AMINO TRANSFERASE 15 U/L (5-34); BILIRUBIN,TOTAL 1.3 MG/DL (0.1-1.0); BLOOD UREA NITROGEN 89 MG/DL (7-18); BUN/CREATININE RATIO 8; CALCIUM 8.1 MG/DL (8.5-10.1); CREATININE SERUM 10.87 MG/DL (0.60-1.30); GFR ESTIMATED 4; GLUCOSE 130 MG/DL (70-105); TOTAL PROTEIN 10.1 GM/DL (6.4-8.2); hs C REACTIVE PROTEIN 2.17 MG/DL (0.00-0.50)
[2016-08-16 09:22] LABS: TROPONIN I < 0.30 NG/ML (<0.30)
--- NOTE | 2016-08-16 09:27 | Diagnostic Imaging Report ---
CT head without contrast. INDICATION: Patient is unresponsive. FINDINGS: There is subarachnoid hemorrhage seen with hyperdensity noted in the basilar cisterns and the sylvian fissures more on the right side. There is also hypodensity in the perimesencephalic cistern as well. There is obliteration of the CSF spaces especially near the base of the brain with hypodensity seen and decreased sullivan-white matter differentiation in the posterior fossa and inferior aspects of the frontal and temporal lobes suggestive of brain edema. The lateral ventricles are relatively small. Focal hypodensity near CSF density is seen near the right frontal horn. This is potentially related to an asymmetric lateral ventricle or a lesion in this location. This can be further evaluated with an enhanced exam or MRI. The calvarium, the paranasal sinuses, and orbits appear grossly unremarkable. IMPRESSION: 1. There is subarachnoid hemorrhage seen within the basilar cisterns and sylvian fissures more on the right side with associated brain edema and effacement of the CSF spaces. Followup CTA to evaluate for source of bleeding when the patient is stable is recommended. 2. Asymmetric hypodensity near the right frontal horn of the lateral ventricle could represent a normal variation of the ventricle or an underlying lesion. Further evaluation with contrast-enhanced studies would be helpful. The subarachnoid hemorrhage and brain edema findings were discussed with Dr. Alas at time of dictation. Dictated by: Dictated on workstation # [id number]
[2016-08-16 09:57] LABS: INR 1.5 (0.8-1.4); PROTHROMBIN TIME PATIENT 17.7 SEC (12.2-14.7)
--- NOTE | 2016-08-16 10:02 | Diagnostic Imaging Report ---
Portable supine radiograph of the chest. INDICATION: Central line placement. FINDINGS: There is a right internal jugular line placed with the tip at the distal SVC level. ET tube is in good position. The NG tube still appears to be short terminating in the distal esophagus. Again noted cardiomegaly with extensive bilateral pulmonary infiltrates more on the right side. There is also a small/ moderate right pleural effusion. Surgical clips in the upper right abdomen seen. IMPRESSION: 1. Cardiomegaly with extensive infiltrates and right effusion. 2. The NG tube appears to terminate at the distal esophagus level. Dictated by: Dictated on workstation # [id number]
[2016-08-16] MEDS ORDERED: LEVOFLOXACIN 750 MG/150 ML IV 150 ML IV STA (10:10)
[2016-08-16 10:24] LABS: ABG BASE EXCESS -1.9 MMOL/L (-2.5-2.5); ABG HCO3 23 MMOL/L (23-27); ABG OXYGEN SATURATION 94 % (94-100); ABG PCO2 41 MMHG (35-45); ABG PH 7.36 (7.37-7.43); ABG PO2 78 MMHG (79-93)
[2016-08-16 10:25] LABS: ALLENS TEST POSITIVE; PATIENT TEMP 96.6
[2016-08-16] MEDS ORDERED: ROCURONIUM 50 MG/5 ML (ZEMURON) VIAL IV ONE ×2 (10:30→13:38)
[2016-08-16 10:57] VITALS: BP 100/57
[2016-08-16] MEDS ORDERED: MIDAZOLAM 5 MG/5 ML (VERSED) VIAL IV ONE (13:38)
[2016-08-16] MEDS ORDERED: fentaNYL INJECTION 100 MCG/2 ML AMP INJ ONE (13:38)
[2016-08-16] MEDS ORDERED: LIDOCAINE BOLUS 100 MG/5 ML (IMS) SYR IV ONE (13:38)
== END 2016-08-16 11:25 | disposition short-term general hospital (02) ==
LOC: EDUNIT# 08:39 → ER 08:41
DX: I60.4 Nontraumatic subarachnoid hemorrhage from basilar artery (principal); I12.0 Hypertensive chronic kidney disease with stage 5 chronic kidney disease or end stage renal disease; N18.6 End stage renal disease; J18.9 Pneumonia, unspecified organism; Z87.442 Personal history of urinary calculi; Z90.49 Acquired absence of other specified parts of digestive tract; Z90.710 Acquired absence of both cervix and uterus; Z99.2 Dependence on renal dialysis
CPT/HCPCS: 31500; 36415; 36556; 36680; 51702; 70450; 71010; 80053; 82805; 83605; 84484; 85025; 85379; 85610; 85730; 86141; 87040; 93005; 93041; 96365; 96366; 96367; 96375